=== PATIENT | female | born 1980 | race Caucasian/White ===

== ENCOUNTER → 2016-03-08 | Outpatient (CLI) | payer OTHER ==
[~2016-03-08] MED LIST: CETI10CA PO; CYCL10TA9 PO; DIPH50CA33 PO; GLUC-96 PO; HYDR-623 PO; NAPR-247 PO; SPRINTEC PO
--- OUTSIDE RECORDS SUMMARY | 2016-03-08 08:53 | XMS REPORT | Continuity of Care Document ---
Author Author [facility] Organization [facility] Address Unknown Phone Unavailable Support Name Relationship Address Phone DANNY MCDANIELS MD Caregiver [address] [place] [address] JUSTINE BURGESS APRN Caregiver [address] [place] [address] BHASKAR RAM Next Of Kin [address] [facility] [place] [address] Insurance Providers Payer Name Policy Number Subscriber Name Relationship [employer] [facility] [id number] Cyndi Ram I 20 Self / Same As Patient Advance Directives Directive Response Recorded Date/Time Advance Directives No 12/15/13 3:14pm Health Care Power of Precision Instrument And Tool Maker No 12/15/13 3:14pm Organ Donor Yes 12/15/13 3:14pm Resuscitation Status Full Code 12/15/13 3:14pm Problems Medical Problems Problem Onset Date Status HNP (herniated nucleus pulposus), lumbar Unknown Active Medications Medication Dose Route Sig Days/Qty Instructions Order Date Discontinued Date Status Cyclobenzaprine HCl (Flexeril) 1 Each PO BEDTIME 12/01/13 Active [Sprintec] 1 Tab PO DAILY 12/01/13 Active Naproxen 1 Each PO TWICE A DAY 12/01/13 Active Diphenhydramine HCl 1 Each PO BEDTIME 12/01/13 Active Cetirizine Hcl 10 Mg PO DAILY 12/01/13 Active Glucosa Antunez 2KCL/Chondroitin Antunez 1 Each PO DAILY 12/01/13 Active Acetaminophen/Hydrocodone Bitart 1 Each PO Q4HR PRN PRN PAIN 60 Qty Active Social History Social History Problem Response Recorded Date/Time Alcohol Use Denies Use 12/15/2013 3:26pm Recreational Drug Use No 12/15/2013 3:26pm Recent Foreign Travel No 12/15/2013 3:26pm Recent Infectious Disease Exposure No 12/15/2013 3:26pm Hospitalization with Isolation Denies 12/15/2013 4:15pm Sexually Transmitted Disease No 12/15/2013 3:26pm HIV/AIDS No 12/15/2013 3:26pm Smoking Status Never a Smoker 12/15/2013 3:15pm Do you dip or chew tobacco? No 12/15/2013 3:15pm Query Response Start Date Stop Date Smoking Status Never a Smoker Hospital Discharge Instructions No hospital discharge instructions. Plan of Care No plan of care. Functional Status Query Response Date Recorded Patient Orientation Person Place Time Situation December 17, 2013 12:24pm Comprehension Ability Understands Concepts December 15, 2013 3:00pm Allergies, Adverse Reactions, Alerts Allergen Type Severity Reaction Status Last Updated No Known Drug Allergies Active 12/01/13 Immunizations Name Given Type Date of Influenza Vaccine 12/10/13 Historical Vital Signs Acute Vital Signs Vital Response Date/Time Temperature (Fahrenheit) 98.6 degrees F (97.6 - 99.5) Temperature (Calculated Celsius) 37.55926 degrees C (36.4 - 37.5) Temperature Source Tympanic Pulse Rate (adult) 92 bpm (60 - 90) Respiratory Rate 18 bpm (12 - 24) O2 Sat by Pulse Oximetry 92 % (88 - 100) Blood Pressure 116/82 mm Hg Pain Pain Intensity 8 Height (Feet) 5 feet Height (Inches) 4.00 inches Height (Calculated Centimeters) 162.003755 cm Weight (Pounds) 199 pounds Weight (Calculated Grams) 02397.883 gm Weight (Calculated Kilograms) 90.765220 kilograms Calculated BMI 34.15 Results No known relevant diagnostic tests, laboratory data and/or discharge summary. Procedures Procedure Status Date Provider(s) LOW BACK DISK SURGERY completed 12/15/13 DANNY MCDANIELS MD Encounters Encounter Location Date/Time Registered Clinic Via [facility] 12/01/13 7:57am
--- NOTE | 2016-03-08 09:16 | Diagnostic Imaging Report ---
INDICATION: Left-sided low back pain and left hip pain for approximately one month. No known injury. TECHNIQUE: 2 views of the left hip. CORRELATION STUDY: None FINDINGS: Images of the hip demonstrate no evidence for acute fracture. Alignment is anatomic. The femoral head acetabular relationship is unremarkable. The bony trabecular pattern is intact. IMPRESSION: 1. Negative for acute bony abnormality of the left hip. Dictated by: Dictated on workstation # [id number]
--- NOTE | 2016-03-08 12:01 | Diagnostic Imaging Report ---
INDICATION: Low back pain, left hip pain. History of previous lumbar spine surgery. TECHNIQUE: AP, Lateral and Spot imaging of the lumbar spine CORRELATION STUDY: 10/14/2013. FINDINGS: Lumbar spinal alignment relatively anatomic. Lumbar vertebral body heights maintained. Moderate disc space narrowing at L5-S1 level. Remaining disc spaces overall fairly well preserved. IMPRESSION: Asymmetric disc space narrowing at L5-S1 level. Otherwise, unremarkable examination of lumbar spine. Dictated by: Dictated on workstation # [id number]
== END ==
LOC: RAD 08:49
PROVIDERS: ATTEND Nurse Practitioner Family
DX: M54.5 Low back pain (principal); M25.552 Pain in left hip
CPT/HCPCS: 72100; 73502

== ENCOUNTER 2016-04-21 10:07 | Outpatient (CLI) | payer OTHER ==
[~2016-04-21] VITALS: Ht 160 cm; Wt 90.7 kg
--- OUTSIDE RECORDS SUMMARY | 2016-04-21 10:10 | XMS REPORT | Continuity of Care Document ---
Author Author [facility] Organization [facility] Address Unknown Phone Unavailable Support Name Relationship Address Phone DANNY MCDANIELS MD Caregiver [address] [place] [address] JUSTINE BURGESS APRN Caregiver [address] [place] [address] BHASKAR RMA Next Of Kin [address] [facility] [place] [address] Insurance Providers Payer Name Policy Number Subscriber Name Relationship [employer] [facility] [id number] Cyndi Ram I 18 Self / Same As Patient Advance Directives Directive Response Recorded Date/Time Advance Directives No 12/15/13 3:14pm Health Care Power of Advertising Job Titles No 12/15/13 3:14pm Organ Donor Yes 12/15/13 [...] F (97.6 - 99.5) Temperature (Calculated Celsius) 37.74059 degrees C (36.4 - 37.5) Temperature Source Tympanic Pulse Rate (adult) 92 bpm (60 - 90) Respiratory Rate 18 bpm (12 - 24) O2 Sat by Pulse Oximetry 92 % (88 - 100) Blood Pressure 116/82 mm Hg Pain Pain Intensity 8 Height (Feet) 5 feet Height (Inches) 4.00 inches Height (Calculated Centimeters) 162.744016 cm Weight (Pounds) 199 pounds Weight (Calculated Grams) 89755.883 gm Weight (Calculated Kilograms) 90.527231 kilograms Calculated BMI 34.15 Results No known relevant diagnostic tests, laboratory data and/or discharge summary. Procedures Procedure Status Date Provider(s) LOW BACK DISK SURGERY completed 12/15/13 DANNY MCDANIELS MD Encounters Encounter Location Date/Time Registered Clinic [facility] 12/01/13 7:57am
[2016-04-21] MEDS ORDERED: BUPIVACAINE 0.25% 30 ML (SENSORCAINE) VIAL ONE (10:17)
[2016-04-21] MEDS ORDERED: TRIAMCINOLONE ACET (KENALOG-40) 40 MG/ML 1 ML VIAL ONE (10:17)
[2016-04-21 10:24] VITALS: BP 165/116
[2016-04-21 10:55] VITALS: BP 160/104
--- NOTE | 2016-04-21 14:13 | Pain Medicine-Procedure ---
Procedure Pre-Op/Post-Op Diagnosis Diagnosis: disc disorder with radiculopathy, lumbar Indications for Operation Low back pain Attending Surgeon Sandie Procedure Date of Service: Apr 21, 2016 PROCEDURE: Caudal Epidural Steroid Injection with catheter under Flouroscopic Guidance PROCEDURE NOTE: After obtaining written informed consent patient was taken to the procedure room. Vital signs were monitored through out the procedure. A time out was performed. The patient was placed in the prone position on fluoroscopy table. The lower back above the caudal space was prepped with chloraprep and draped in the usual sterile fashion. The skin over the sacral hiatus was identified under fluoroscopic guidance and infiltrated with 1% lidocaine for local anesthesia via 25 gauge needle. An 17-gauge epimed needle was used to access the epidural space under fluoroscopic guidance and was then advanced into the epidural space under fluoroscopic guidance in the AP view. The epimed catheter was then advanced under flourospopic guidance to the L5-S1 interspace. There was no paresthesia with catheter placement. After negative aspiration 1 cc of the contrast dye was injected through the needle with good spread of the medication in the epidural space at the appropriate levels. Again, after negative aspiration, 80 mg of kenalog with 2 cc of 0.25% marcaine and 2 mL's of preservative free normal saline was injected. There was no evidence of CSF, paresthesia or heme during the procedure. The catheter and needle were withdrawn as a unit and the tip was noted to be intact upon removal. Skin was cleaned and a sterile dressing was applied. Following the procedure the patient's vital signs were stable. The patient was discharged home after a brief period of observation with no new neuologic deficits. Complications None GEOVANI CASTANEDA MD Apr 21, 2016 2:13 pm
== END 2016-04-21 10:56 | disposition home or self-care (01) ==
LOC: CARD 10:07
PROVIDERS: ATTEND Pain Medicine Pain Medicine
DX: M51.16 Intervertebral disc disorders with radiculopathy, lumbar region (principal); Z79.899 Other long term (current) drug therapy
CPT/HCPCS: 62323

== ENCOUNTER → 2016-05-15 | Outpatient (CLI) | payer OTHER ==
--- OUTSIDE RECORDS SUMMARY | 2016-05-15 07:42 | XMS REPORT | Continuity of Care Document ---
Author Author [facility] Organization [facility] Address Unknown Phone Unavailable Support Name Relationship Address Phone DANNY MCDANIELS MD Caregiver [address] [place] [address] JUSTINE BURGESS APRN Caregiver [address] [place] [address] BHASKAR RAM Next Of Kin [address] [facility] [place] [address] Insurance Providers Payer Name Policy Number Subscriber Name Relationship [employer] [facility] [id number] Cyndi Ram I 20 Self / Same As Patient Advance Directives Directive Response Recorded Date/Time Advance Directives No 12/15/13 3:14pm Health Care Power of Nut Feeder No 12/15/13 3:14pm Organ Donor Yes 12/15/13 [...] F (97.6 - 99.5) Temperature (Calculated Celsius) 37.55206 degrees C (36.4 - 37.5) Temperature Source Tympanic Pulse Rate (adult) 92 bpm (60 - 90) Respiratory Rate 18 bpm (12 - 24) O2 Sat by Pulse Oximetry 92 % (88 - 100) Blood Pressure 116/82 mm Hg Pain Pain Intensity 8 Height (Feet) 5 feet Height (Inches) 4.00 inches Height (Calculated Centimeters) 162.631135 cm Weight (Pounds) 199 pounds Weight (Calculated Grams) 18985.883 gm Weight (Calculated Kilograms) 90.809717 kilograms Calculated BMI 34.15 Results No known relevant diagnostic tests, laboratory data and/or discharge summary. Procedures Procedure Status Date Provider(s) LOW BACK DISK SURGERY completed 12/15/13 DANNY MCDANIELS MD Encounters Encounter Location Date/Time Registered Clinic Via [facility] 12/01/13 7:57am
--- NOTE | 2016-05-15 13:23 | Diagnostic Imaging Report ---
PROCEDURE: MRI lumbar spine. TECHNIQUE: Multiplanar, multisequence MRI of the lumbar spine was performed without contrast. INDICATION: Back pain. FINDINGS: There is satisfactory alignment of the posterior spinal line. The vertebral body heights are preserved. The L5-S1 disc demonstrates mild height loss and there is mild disc desiccation at L4-5 and L5-S1. There are minimal reactive degenerative marrow changes around endplate of L5-S1 disc. The cauda equina and conus medullaris appear grossly unremarkable. The conus terminates at the upper L1 level. T12-L1: No disc herniation, no spinal canal or foraminal stenosis. L1-L2: No disc herniation. There is mild facet hypertrophy. No spinal canal or foraminal stenosis. L2-L3: There is no disc herniation. There is minimal facet hypertrophy. No spinal canal or foraminal stenosis. L3-L4: There is no disc herniation. There is mild facet hypertrophy. No central canal or lateral recess stenosis. No foraminal narrowing. L4-L5: There is a mild broad-based left lateral disc protrusion. There is mild to moderate facet arthropathy with minimal facet joint effusion bilaterally. There is no central canal or lateral recess stenosis. There is a mild left foraminal stenosis. The right foramen is patent. L5-S1: There is a broad-based left paracentral disc protrusion with annular tear and there is mild facet hypertrophy bilaterally. There is evidence of prior left hemilaminectomy at the S1 level. There is mild central canal stenosis reducing the AP dimension of the canal to 8 mm. There is bilateral mild lateral recess stenosis more on the left side. The neural foramina demonstrates bilateral moderate to severe stenosis more on the right side. IMPRESSION: Bilateral moderate to severe foraminal stenosis at L5-S1 level more on the right side. There is also mild lateral recess stenosis bilaterally at this level. Dictated by: Dictated on workstation # [id number]
== END ==
LOC: RAD 07:39
PROVIDERS: ATTEND Pain Medicine Pain Medicine
DX: M54.5 Low back pain (principal)
CPT/HCPCS: 72148

== ENCOUNTER 2016-05-23 08:31 | Outpatient (RCR) | payer OTHER ==
--- OUTSIDE RECORDS SUMMARY | 2016-03-30 08:08 | XMS REPORT | Continuity of Care Document ---
Author Author [facility] Organization [facility] Address Unknown Phone Unavailable Support Name Relationship Address Phone DANNY MCDANIELS MD Caregiver [address] [place] [address] JUSTINE BURGESS APRN Caregiver [address] [place] [address] BHASKAR RAM Next Of Kin [address] [facility] [place] [address] Insurance Providers Payer Name Policy Number Subscriber Name Relationship [employer] [facility] [id number] Cyndi Ram I 18 Self / Same As Patient Advance Directives Directive Response Recorded Date/Time Advance Directives No 12/15/13 3:14pm Health Care Power of Apprise Counselor No 12/15/13 3:14pm Organ Donor Yes 12/15/13 [...] F (97.6 - 99.5) Temperature (Calculated Celsius) 37.64857 degrees C (36.4 - 37.5) Temperature Source Tympanic Pulse Rate (adult) 92 bpm (60 - 90) Respiratory Rate 18 bpm (12 - 24) O2 Sat by Pulse Oximetry 92 % (88 - 100) Blood Pressure 116/82 mm Hg Pain Pain Intensity 8 Height (Feet) 5 feet Height (Inches) 4.00 inches Height (Calculated Centimeters) 162.100214 cm Weight (Pounds) 199 pounds Weight (Calculated Grams) 44262.883 gm Weight (Calculated Kilograms) 90.137822 kilograms Calculated BMI 34.15 Results No known relevant diagnostic tests, laboratory data and/or discharge summary. Procedures Procedure Status Date Provider(s) LOW BACK DISK SURGERY completed 12/15/13 DANNY MCDANIELS MD Encounters Encounter Location Date/Time Registered Clinic Via [facility] 12/01/13 7:57am
== END 2016-06-13 11:47 | disposition home or self-care (01) ==
PROVIDERS: ATTEND Nurse Practitioner Family
DX: M54.5 Low back pain (principal)

== ENCOUNTER 2016-06-26 12:36 | Outpatient (CLI) | payer OTHER ==
[~2016-06-26] VITALS: Ht 160 cm; Wt 93.0 kg
[2016-06-26] MEDS ORDERED: BUPIVACAINE 0.25% 30 ML (SENSORCAINE) VIAL ONE (12:41)
[2016-06-26] MEDS ORDERED: TRIAMCINOLONE ACET (KENALOG-40) 40 MG/ML 1 ML VIAL ONE (12:41)
[2016-06-26 12:52] VITALS: BP 146/113
[2016-06-26 13:37] VITALS: BP 153/115
--- NOTE | 2016-06-26 14:42 | Pain Medicine-Procedure ---
Procedure Pre-Op/Post-Op Diagnosis Diagnosis: disc disorder with radiculopathy, lumbar Indications for Operation Low back pain Attending Surgeon Sandie Procedure Date of Service: Jun 26, 2016 PROCEDURE: Caudal Epidural Steroid Injection with catheter under Flouroscopic Guidance PROCEDURE NOTE: After obtaining written informed consent patient was taken to the procedure room. Vital signs were monitored through out the procedure. A time out was performed. The patient was placed in the prone position on fluoroscopy table. The lower back above the caudal space was prepped with chloraprep and draped in the usual sterile fashion. The skin over the sacral hiatus was identified under fluoroscopic guidance and infiltrated with 1% lidocaine for local anesthesia via 25 gauge needle. An 17-gauge epimed needle was used to access the epidural space under fluoroscopic guidance and was then advanced into the epidural space under fluoroscopic guidance in the AP view. The epimed catheter was then advanced under flourospopic guidance to the L5-S1 interspace. There was no paresthesia with catheter placement. After negative aspiration 1 cc of the contrast dye was injected through the needle with good spread of the medication in the epidural space at the appropriate levels. Again, after negative aspiration, 80 mg of kenalog with 2 cc of 0.25% marcaine and 2 mL's of preservative free normal saline was injected. There was no evidence of CSF, paresthesia or heme during the procedure. The catheter and needle were withdrawn as a unit and the tip was noted to be intact upon removal. Skin was cleaned and a sterile dressing was applied. Following the procedure the patient's vital signs were stable. The patient was discharged home after a brief period of observation with no new neuologic deficits. Complications None GEOVANI CASTANEDA MD Jun 26, 2016 2:42 pm
== END 2016-06-26 13:39 | disposition home or self-care (01) ==
LOC: CARD 12:36
PROVIDERS: ATTEND Pain Medicine Pain Medicine
DX: M51.16 Intervertebral disc disorders with radiculopathy, lumbar region (principal); Z79.899 Other long term (current) drug therapy
CPT/HCPCS: 62323

== ENCOUNTER → 2016-08-21 | Outpatient (CLI) | payer OTHER ==
[2016-08-21 08:28] LABS: CHOLESTEROL 195 MG/DL (< 200); DIRECT LDL 123 MG/DL (1-129); LIPEMIA 6 (-100-49); TRIGLYCERIDES 214 MG/DL (<150); VLDL CHOLESTEROL 43 MG/DL (5-40)
== END ==
LOC: LAB 07:46
PROVIDERS: ATTEND Nurse Practitioner Family
DX: E78.2 Mixed hyperlipidemia (principal)
CPT/HCPCS: 36415; 80061

== ENCOUNTER → 2017-03-01 | Outpatient (CLI) | payer OTHER ==
[2017-03-01 10:29] LABS: HEMOGLOBIN 15.2 G/DL (11.5-16.0); MEAN PLATELET VOLUME 9.1 FL (7.4-10.4); RED BLOOD COUNT 5.11 10^6/uL (4.35-5.85); RED CELL DISTRIBUTION WIDTH 12.8 % (10.0-14.5); WHITE BLOOD COUNT 8.4 10^3/uL (4.3-11.0)
[2017-03-01 10:55] LABS: ALANINE AMINOTRANSFERASE 28 U/L (0-55); ALBUMIN 4.2 GM/DL (3.2-4.5); ALKALINE PHOSPHATASE 88 U/L (40-136); BILIRUBIN,TOTAL 0.5 MG/DL (0.1-1.0); BUN/CREATININE RATIO 19; CALCIUM 9.3 MG/DL (8.5-10.1); CARBON DIOXIDE 23 MMOL/L (21-32); CHLORIDE 106 MMOL/L (98-107); CHOLESTEROL 216 MG/DL (< 200); CREATININE SERUM 0.75 MG/DL (0.60-1.30); GFR ESTIMATED > 60; GLUCOSE 118 MG/DL (70-105); HDL CHOLESTEROL 43 MG/DL (40-60); SODIUM 138 MMOL/L (135-145); TOTAL PROTEIN 7.3 GM/DL (6.4-8.2); TRIGLYCERIDES 163 MG/DL (<150); VLDL CHOLESTEROL 33 MG/DL (5-40)
== END ==
LOC: LAB 10:07
PROVIDERS: ATTEND Nurse Practitioner Family
DX: E55.9 Vitamin D deficiency, unspecified (principal); R53.83 Other fatigue
CPT/HCPCS: 36415; 80053; 80061; 82306; 82607; 85027

== ENCOUNTER → 2017-12-21 | Outpatient (CLI) | payer OTHER ==
[2017-12-21 07:35] LABS: BASOPHILS # (AUTO) 0.1 10^3/uL (0.0-0.1); BASOPHILS % (AUTO) 1 % (0-10); EOSINOPHILS # (AUTO) 0.3 10^3/uL (0.0-0.3); EOSINOPHILS % (AUTO) 4 % (0-10); HEMATOCRIT 41 % (35-52); HEMOGLOBIN 14.3 G/DL (11.5-16.0); LYMPHOCYTES # (AUTO) 2.5 X 10^3 (1.0-4.0); LYMPHOCYTES % (AUTO) 34 % (12-44); MEAN CORPUSCULAR HEMOGLOBIN 30 PG (25-34); MEAN CORPUSCULAR HGB CONC 35 G/DL (32-36); MEAN CORPUSCULAR VOLUME 86 FL (80-99); MEAN PLATELET VOLUME 9.1 FL (7.4-10.4); MONOCYTES # (AUTO) 0.6 X 10^3 (0.0-1.0); MONOCYTES % (AUTO) 9 % (0-12); NEUTROPHILS # (AUTO) 3.8 X 10^3 (1.8-7.8); NEUTROPHILS % (AUTO) 52 % (42-75); PLATELET COUNT 324 10^3/uL (130-400); RED BLOOD COUNT 4.75 10^6/uL (4.35-5.85); RED CELL DISTRIBUTION WIDTH 12.3 % (10.0-14.5); WHITE BLOOD COUNT 7.3 10^3/uL (4.3-11.0)
[2017-12-21 07:53] LABS: ALANINE AMINOTRANSFERASE 38 U/L (0-55); ALBUMIN 4.2 GM/DL (3.2-4.5); ALKALINE PHOSPHATASE 86 U/L (40-136); BILIRUBIN,TOTAL 0.4 MG/DL (0.1-1.0); BUN/CREATININE RATIO 17; CALCIUM 9.3 MG/DL (8.5-10.1); CARBON DIOXIDE 21 MMOL/L (21-32); CHLORIDE 107 MMOL/L (98-107); CHOLESTEROL 204 MG/DL (< 200); CREATININE SERUM 0.81 MG/DL (0.60-1.30); GFR ESTIMATED > 60; GLUCOSE 144 MG/DL (70-105); HDL CHOLESTEROL 37 MG/DL (40-60); SODIUM 140 MMOL/L (135-145); TRIGLYCERIDES 161 MG/DL (<150); VLDL CHOLESTEROL 32 MG/DL (5-40)
== END ==
LOC: LAB 07:19
PROVIDERS: ATTEND Nurse Practitioner Family
DX: E55.9 Vitamin D deficiency, unspecified (principal); E78.5 Hyperlipidemia, unspecified
CPT/HCPCS: 36415; 80053; 80061; 82306; 84443; 85025

== ENCOUNTER → 2017-12-27 | Outpatient (CLI) | payer OTHER ==
[2017-12-27 11:01] LABS: URIC ACID 7.4 MG/DL (2.6-7.2)
== END ==
LOC: LAB 10:14
PROVIDERS: ATTEND Podiatrist Foot & Ankle Surgery
DX: R60.9 Edema, unspecified (principal)
CPT/HCPCS: 36415; 84550; 86038; 86141; 86430; 86618; 86666; 86668; 86757

== ENCOUNTER → 2017-12-27 | Outpatient (CLI) | payer OTHER | LOC: LAB 10:17 | PROVIDERS: ATTEND Nurse Practitioner Family | DX: R73.01 Impaired fasting glucose (principal) | CPT/HCPCS: 36415; 83036 ==

== ENCOUNTER → 2018-01-14 | Outpatient (CLI) | payer OTHER ==
--- NOTE | 2018-01-14 17:53 | Diagnostic Imaging Report ---
Indication: Routine screening. Comparison: No prior studies are available for comparison. This is a baseline study. Findings: Scattered fibroglandular densities are identified bilaterally. There is an area of nodularity in the medial aspect of the left breast posterior depth best seen on the tomographic images. Seen on CC tomographic image 44 and MLO tomographic image 76. Additional views are recommended. No other masses are identified. No suspicious calcifications are seen. Axillae are unremarkable. Impression: BI-RADS 0. Left breast density. Additional views are recommended for further evaluation. ACR BI-RADS Category 0: Incomplete. (Needs additional imaging evaluation). Result letter will be mailed to the patient. Note: At least 10% of breast cancer is not imaged by mammography. Dictated by: Dictated on workstation # [id number]
== END ==
LOC: RAD 14:48
PROVIDERS: ATTEND Nurse Practitioner Family
DX: Z12.31 Encounter for screening mammogram for malignant neoplasm of breast (principal)
CPT/HCPCS: 77067

== ENCOUNTER → 2018-01-30 | Outpatient (CLI) | payer OTHER ==
--- NOTE | 2018-01-30 10:22 | Diagnostic Imaging Report ---
Indication: Left breast density. Patient presents for additional views. Correlation is made with recent baseline screening mammogram from 01/14/2018. Unilateral left 2-D and 3-D diagnostic mammography was performed including spot compression CC and MLO views as well as conventional mediolateral view. There is a circumscribed density in the medial left breast on the cc view approximately 12-13 cm from the nipple. No density is identified on today's spot compression views in the MLO plane. No suspicious calcifications are seen. Impression: BI-RADS zero Persistent circumscribed nodular density in the medial left breast 12-13 cm from the nipple. Sonographic interrogation recommended for further evaluation will be performed today. ACR BI-RADS Category 0: Incomplete. (Needs additional imaging evaluation). Result letter will be mailed to the patient. Note: At least 10% of breast cancer is not imaged by mammography. Dictated by: Dictated on workstation # [id number]
--- NOTE | 2018-01-30 12:07 | Diagnostic Imaging Report ---
Indication: Left breast density. Correlation is made with diagnostic mammogram earlier the same day and screening mammogram from 01/14/2018. Sonographic interrogation of the inner left breast was performed. There is a circumscribed hypoechoic nodule at the 9:30 location of the left breast, 12 cm from the nipple measuring 7 mm x 5 mm x 7 mm. No internal vascularity is seen. No posterior acoustic shadowing is identified. This may account for the mammographic density. No other abnormalities are identified. Impression: BI-RADS category 3 Circumscribed solid nodule 9:30 location of the left breast 12 cm from the nipple, likely accounting for the mammographic density. This has benign features and may represent a small fibroadenoma. Even so, followup left mammogram and left breast ultrasound in 6 months is recommended to show continued stability. Dictated by: Dictated on workstation # [id number]
== END ==
LOC: RAD 09:00
PROVIDERS: ATTEND Nurse Practitioner Family
DX: N63.22 Unspecified lump in the left breast, upper inner quadrant (principal); R92.2 Inconclusive mammogram
CPT/HCPCS: 76642

== ENCOUNTER → 2018-06-05 | Outpatient (CLI) | payer OTHER ==
--- NOTE | 2018-06-05 14:35 | Diagnostic Imaging Report ---
INDICATION: Back pain. COMPARISON: 03/08/2016. FINDINGS: The lumbar body heights are maintained and the alignment is stable. The statures are normal. No endplate irregularity. Degenerative narrowing of the L5-S1 disc space as a mildly progressed chronic finding is noted. There is some L5-S1 facet arthrosis, also increased. IMPRESSION: Mild progressive degenerative changes across the lumbosacral junction. Normal alignment. No fracture or stature loss. No other abnormality. Dictated by: Dictated on workstation # [id number]
== END ==
LOC: RAD 12:59
PROVIDERS: ATTEND Nurse Practitioner Family
DX: M47.817 Spondylosis without myelopathy or radiculopathy, lumbosacral region (principal); Z87.39 Personal history of other diseases of the musculoskeletal system and connective tissue
CPT/HCPCS: 72100

== ENCOUNTER → 2018-06-06 | Outpatient (CLI) | payer OTHER ==
[2018-06-06 07:49] LABS: CHOLESTEROL 190 MG/DL (< 200); HDL CHOLESTEROL 33 MG/DL (40-60); TRIGLYCERIDES 107 MG/DL (<150); VLDL CHOLESTEROL 21 MG/DL (5-40)
== END ==
LOC: LAB 07:18
PROVIDERS: ATTEND Nurse Practitioner Family
DX: R73.9 Hyperglycemia, unspecified (principal); E78.5 Hyperlipidemia, unspecified
CPT/HCPCS: 36415; 80061; 83036

== ENCOUNTER → 2018-06-19 | Outpatient (CLI) | payer OTHER ==
--- NOTE | 2018-06-19 13:41 | Diagnostic Imaging Report ---
CLINICAL INDICATION: Patient with low back pain and bilateral leg pain/numbness. Patient had previous lumbar spine surgery December 2013. EXAM: MRI of the lumbar spine performed without IV contrast. Sagittal T2, sagittal T1, sagittal stir, and axial T2. COMPARISON: MRI of the lumbar spine without contrast dated 05/15/2016. FINDINGS: Again seen postop changes to the lower lumbar region related to left L5-S1 laminotomy and likely discectomy changes. There is no significant paraspinal fluid collection. Lumbar spine has normal alignment with no acute fracture or dislocation. The lumbar vertebrae had normal T1-T2 signal. The visualized portions of the distal thoracic spinal cord, conus medullaris, and cauda equina nerve roots are unremarkable. The conus medullaris tip is seen at the upper L1 vertebral body level. Besides postop changes, there is no significant paraspinal soft tissue abnormality. Again seen roughly 10 mm left renal cyst. L1-L2: Unremarkable. L2-L3: Unremarkable. L3-L4: Unremarkable. L4-L5: Stable small disc bulge in the left subarticular region causing moderate left neural foramen narrowing, stable. Otherwise remainder of this level is stable. L5-S1: There is progression of diffuse disc bulge with now moderate to severe loss of intervertebral disc height which has progressed. There is increased size of the anterior disc osteophyte complex component. There is no significant interval change in size of the posterior disc herniation component which minimally encroaches upon the thecal sac anteriorly. There is stable moderate to severe bilateral neural foramen narrowing. There is concern for encroachment upon the non-exited left S1 nerve root which is noted on the prior study. IMPRESSION: 1: There is interval progression of L5-S1 diffuse disc bulge with now moderate to severe loss of intervertebral disc height. There is relatively stable size of the posterior disc herniation component with stable moderate to severe bilateral L5-S1 neural foramen narrowing. There is also stable concern for encroachment upon the non-exited left S1 nerve root. 2: Stable small L4-5 left subarticular disc bulge which causes moderate left neural foramen narrowing. 3: Again seen postop changes with suspected left L5-S1 laminotomy and discectomy. 4: The remainder of this exam shows no significant interval change compared to the prior study of comparison. Dictated by: Dictated on workstation # [id number]
== END ==
LOC: RAD 12:18
PROVIDERS: ATTEND Nurse Practitioner Family
DX: M51.27 Other intervertebral disc displacement, lumbosacral region (principal); M51.36 Other intervertebral disc degeneration, lumbar region; M48.07 Spinal stenosis, lumbosacral region; Z98.890 Other specified postprocedural states
CPT/HCPCS: 72148

== ENCOUNTER → 2018-07-24 | Outpatient (CLI) | payer OTHER ==
--- NOTE | 2018-07-24 15:03 | Diagnostic Imaging Report ---
INDICATION: Six-month followup left breast nodule. COMPARISON: 01/14/2018 and 01/30/2018. TECHNIQUE: Unilateral left 2D and 3D diagnostic mammography was performed with CAD. FINDINGS: Scattered fibroglandular densities in the left breast are noted. The slightly lobulated circumscribed nodule in the medial left breast at mid-to posterior depth appears stable. No new mass is detected. No suspicious microcalcifications are seen. The left axilla is unremarkable. IMPRESSION: Stable left breast nodule. Further evaluation of the nodule with ultrasound is pending. ACR BI-RADS Category 0: Incomplete. (Needs additional imaging evaluation). Result letter will be mailed to the patient. Note: At least 10% of breast cancer is not imaged by mammography. Dictated by: Dictated on workstation # [id number]
--- NOTE | 2018-07-24 15:09 | Diagnostic Imaging Report ---
INDICATION: Left breast nodule. Patient presents for a 6 month followup. COMPARISON: Correlation is made with the screening study of earlier this same day as well as prior left breast ultrasound from 01/30/2018. FINDINGS: The circumscribed hypoechoic nodule at the 9:30 location in the left breast 12 cm from the nipple is again noted and appears stable. This measures 6 mm x 5 mm x 7 mm. No new mass is seen. IMPRESSION: Stable benign-appearing nodule at the 9:30 location of the left breast 12 cm from the nipple is likely a fibroadenoma. An additional 6 month sonographic followup is recommended to confirm stability. ACR BI-RADS Category 3: Probably benign findings. Result letter will be mailed to the patient. Note: At least 10% of breast cancer is not imaged by mammography. Dictated by: Dictated on workstation # [id number]
== END ==
LOC: RAD 12:27
PROVIDERS: ATTEND Nurse Practitioner Family
DX: N63.22 Unspecified lump in the left breast, upper inner quadrant (principal)
CPT/HCPCS: 76642

== ENCOUNTER → 2018-09-13 | Outpatient (CLI) | payer OTHER ==
--- NOTE | 2018-09-13 13:03 | Diagnostic Imaging Report ---
INDICATION: Smashing injury to right second digit two days ago. Pain. TECHNIQUE: PA and two additional views of the right index finger, 12:47 p.m. CORRELATION STUDY: None. FINDINGS: The osseous structures of the hand appear to be intact. Imaging of the second digit demonstrates alignment of the phalanges. No acute bony abnormality. Joint spaces are maintained. No soft tissue foreign body. IMPRESSION: Negative for acute bony abnormality of the right index finger. Dictated by: Dictated on workstation # [id number]
== END ==
LOC: RAD 12:38
PROVIDERS: ATTEND Nurse Practitioner Family
DX: S69.81XA Other specified injuries of right wrist, hand and finger(s), initial encounter (principal)
CPT/HCPCS: 73140

== ENCOUNTER → 2018-11-07 | Outpatient (CLI) | payer OTHER ==
--- NOTE | 2018-11-07 14:40 | Diagnostic Imaging Report ---
CLINICAL INDICATION: Patient has low back pain increasing recently with a history of two previous lumbar spine surgeries. Last surgery was in August of 2018. EXAM: MRI of the lumbar spine performed without IV contrast. Sagittal T2, sagittal T1, sagittal stir, axial T1, and axial T2. COMPARISON: MRI of the lumbar spine without contrast dated 06/19/2018. FINDINGS: There are postop changes seen with L5-S1 left laminectomy. There is interval development of a small fluid collection in the posterior lower lumbar region which measures 2.2 cm x 0.8 cm x 2.3 cm (AP x Trans x CC) . Lumbar spine has normal alignment with no acute fracture or dislocation. There are mild Modic type I degenerative signal changes involving the L5-S1 endplates. The remainder of the lumbar vertebral body signal is unremarkable. The visualized portions of the distal thoracic spinal cord, conus medullaris, and cauda equina nerve roots are unremarkable. The conus medullaris tip is seen at the upper L1 vertebral body level. Besides postop changes, there is no other significant paraspinal soft tissue abnormality. There is a 10 mm cyst involving the left kidney which was also noted on the prior study. T12-L1, L1-L2, and L2-L3: Unremarkable. L3-L4: There is interval development of a small annular tear involving the anterior aspect of L3-L4 disc region with no significant disc bulge. There is no significant posterior disc bulge. There is no significant central spinal canal or neural foramen narrowing. L4-L5: Stable small right subarticular disc bulge which causes stable moderate left neural foramen narrowing. There is no significant central canal or right neural foramen narrowing. L5-S1: Interval postop changes with left L5-S1 laminotomy. There are interval suspected discectomy changes with near resolution of previously seen posterior disc herniation. There is residual small right disc herniation present. There is stable moderate to severe bilateral neural foramen narrowing. There is no significant central canal narrowing. IMPRESSION: 1: Interval postop changes at the L5-S1 level with laminotomy and discectomy changes. There is interval near resolution of the previously seen L5-S1 posterior disc herniation. There is small disc herniation remaining in the right subarticular region. There is stable moderate to severe L5-S1 bilateral neural foramen narrowing. 2: Stable L4-L5 disc herniation of the left subarticular region which causes moderate left neural foramen narrowing. 3: There is interval development of a small annular tear involving the anterior aspect of the L3-L4 disc with no significant disc bulge seen. Dictated by: Dictated on workstation # [id number]
== END ==
LOC: RAD 13:45
PROVIDERS: ATTEND Orthopaedic Surgery Orthopaedic Surgery of the Spine
DX: M51.26 Other intervertebral disc displacement, lumbar region (principal); M48.07 Spinal stenosis, lumbosacral region; M51.36 Other intervertebral disc degeneration, lumbar region
CPT/HCPCS: 72148

== ENCOUNTER 2018-12-12 13:55 | Outpatient (RCR) | payer OTHER | END 2018-12-30 13:38 | disposition home or self-care (01) | PROVIDERS: ATTEND Orthopaedic Surgery Orthopaedic Surgery of the Spine | DX: M54.5 Low back pain (principal); Z98.890 Other specified postprocedural states ==

== ENCOUNTER → 2019-01-13 | Outpatient (CLI) | payer OTHER ==
[2019-01-13 07:48] LABS: BASOPHILS % (AUTO) 1 % (0-10); EOSINOPHILS # (AUTO) 0.3 10^3/uL (0.0-0.3); EOSINOPHILS % (AUTO) 4 % (0-10); HEMATOCRIT 41 % (35-52); HEMOGLOBIN 13.8 G/DL (11.5-16.0); LYMPHOCYTES # (AUTO) 2.2 X 10^3 (1.0-4.0); LYMPHOCYTES % (AUTO) 35 % (12-44); MEAN CORPUSCULAR HEMOGLOBIN 29 PG (25-34); MEAN CORPUSCULAR HGB CONC 34 G/DL (32-36); MEAN CORPUSCULAR VOLUME 86 FL (80-99); MEAN PLATELET VOLUME 8.5 FL (7.4-10.4); MONOCYTES # (AUTO) 0.5 X 10^3 (0.0-1.0); MONOCYTES % (AUTO) 9 % (0-12); NEUTROPHILS # (AUTO) 3.3 X 10^3 (1.8-7.8); NEUTROPHILS % (AUTO) 52 % (42-75); PLATELET COUNT 367 10^3/uL (130-400); RED CELL DISTRIBUTION WIDTH 13.3 % (10.0-14.5); WHITE BLOOD COUNT 6.3 10^3/uL (4.3-11.0)
[2019-01-13 08:08] LABS: ALANINE AMINOTRANSFERASE 20 U/L (0-55); ALBUMIN 4.1 GM/DL (3.2-4.5); ALKALINE PHOSPHATASE 68 U/L (40-136); BILIRUBIN,TOTAL 0.4 MG/DL (0.1-1.0); BUN/CREATININE RATIO 19; CALCIUM 9.3 MG/DL (8.5-10.1); CARBON DIOXIDE 23 MMOL/L (21-32); CHLORIDE 107 MMOL/L (98-107); CREATININE SERUM 0.79 MG/DL (0.60-1.30); GFR ESTIMATED > 60; GLUCOSE 90 MG/DL (70-105); SODIUM 141 MMOL/L (135-145)
== END ==
LOC: LAB 07:35
PROVIDERS: ATTEND Nurse Practitioner Family
DX: E11.9 Type 2 diabetes mellitus without complications (principal); E78.5 Hyperlipidemia, unspecified
CPT/HCPCS: 36415; 80053; 83036; 84443; 85025

== ENCOUNTER → 2019-01-20 | Outpatient (CLI) | payer OTHER ==
--- NOTE | 2019-01-20 19:12 | Diagnostic Imaging Report ---
INDICATION: Left breast nodule. Patient presents for six-month follow-up. Correlation is made with diagnostic mammogram performed earlier the same day as well as prior left breast ultrasound from 07/24/2018. FINDINGS: Hypoechoic slightly lobulated nodule at the 9:30 location of the left breast, 12 cm from the nipple is again noted. This appears to be fairly stable in size measuring 7 mm x 4 mm x 7 mm. This compares with approximately 6 mm x 5 mm x 7 mm on prior. No new abnormality is seen. IMPRESSION: Stable left breast circumscribed nodule. This shows six months of stability. Additional follow-up ultrasound in six months is recommended to show continued stability. ACR BI-RADS Category 3: Probably benign findings. Dictated by: Dictated on workstation # [id number]
--- NOTE | 2019-01-20 19:15 | Diagnostic Imaging Report ---
INDICATION: Six-month follow-up left breast nodule. Correlation is made with prior mammograms from 01/14/2018 and 07/24/2018. 2-D and 3-D bilateral diagnostic mammography was performed. The current study was also evaluated with a Computer Aided Detection (CAD) system. 3-D tomosynthesis was also performed and reviewed. FINDINGS: Scattered fibroglandular densities are identified bilaterally. The slightly lobulated nodule in the medial aspect of the left breast posterior depth appears stable. No new mass is detected. No malignant-appearing microcalcifications are seen. Axillae are unremarkable. IMPRESSION: Stable nodule in medial left breast. Even so, left breast ultrasound is recommended for follow-up and will be performed today. ACR BI-RADS Category 0: Incomplete. (Needs additional imaging evaluation). Result letter will be mailed to the patient. Note: At least 10% of breast cancer is not imaged by mammography. Dictated by: Dictated on workstation # [id number]
== END ==
LOC: RAD 13:53
PROVIDERS: ATTEND Nurse Practitioner Family
DX: N63.20 Unspecified lump in the left breast, unspecified quadrant (principal)
CPT/HCPCS: 76642; 77066

== ENCOUNTER 2019-04-09 11:30 | Outpatient (CLI) | payer OTHER ==
[~2019-04-09] VITALS: Ht 160 cm; Wt 86.3 kg
[2019-04-09] MEDS ORDERED: CETI10CA PO (11:39)
[2019-04-09] MEDS ORDERED: MULT1CAP27 PO (11:39)
[2019-04-09] MEDS ORDERED: RANI-609 PO (11:39)
[2019-04-09] MEDS ORDERED: OMG1KC PO (11:39)
[2019-04-09] MEDS ORDERED: LIRA0.6P SQ (11:39)
[2019-04-11] MEDS ORDERED: IBUP-1780 PO (12:28)
== END 2019-04-09 11:53 | disposition home or self-care (01) ==
LOC: PREOP 11:30
PROVIDERS: ATTEND Obstetrics & Gynecology
DX: Z01.818 Encounter for other preprocedural examination (principal)

== ENCOUNTER → 2019-07-18 | Outpatient (CLI) | payer OTHER ==
[~2019-07-18] MED LIST changes: +IBUP-1780 PO; +LIRA0.6P SQ; +MULT1CAP27 PO; +OMG1KC PO; +RANI-609 PO
--- NOTE | 2019-07-18 12:16 | Diagnostic Imaging Report ---
INDICATION: Left breast nodule. Patient presents for 6 month follow-up. Correlation is made with prior ultrasound from 01/20/2019. The previously noted circumscribed hypoechoic nodule 9:30 location of the left breast, 11 cm from the nipple is again noted. This measures 7 mm x 4 mm x 6 mm, unchanged. No new masses detected. IMPRESSION: BI-RADS Category 3 Stable circumscribed hypoechoic solid nodule 9:30 location left breast. This now shows 18 months of stability. One final six-month ultrasound follow-up is recommended to show continued stability. ACR BI-RADS Category 3: Probably benign findings. Dictated by: Dictated on workstation # [id number]
== END ==
LOC: RAD 10:50
PROVIDERS: ATTEND Nurse Practitioner Family
DX: N63.20 Unspecified lump in the left breast, unspecified quadrant (principal)
CPT/HCPCS: 76642

== ENCOUNTER → 2020-01-16 | Outpatient (CLI) | payer OTHER ==
--- NOTE | 2020-01-16 13:41 | Diagnostic Imaging Report ---
Indication: Left breast nodule. Patient presents for six-month follow-up. Correlation is made prior mammogram 01/20/2019 and 01/14/2018. 2-D and 3-D bilateral diagnostic mammography was performed with CAD. Scattered fibroglandular densities are noted bilaterally. Lobulated nodule in the medial left breast appears stable. No new mass is detected. No malignant appearing microcalcifications are seen. IMPRESSION: BI-RADS 0 Stable left breast nodule. Patient is scheduled for left breast ultrasound today. Dictated by: Dictated on workstation # [id number]
--- NOTE | 2020-01-16 13:56 | Diagnostic Imaging Report ---
INDICATION: Left breast nodule. Patient presents for follow-up. Correlation is made with diagnostic mammogram earlier today as well as left breast ultrasound from 07/18/2019. Sonographic interrogation of the medial left breast was performed. The previously noted circumscribed hypoechoic nodule 9:30 location, 11 cm from the nipple appears stable at 7 mm x 4 mm x 6 mm. No new masses detected. IMPRESSION: BI-RADS 2 Stable nodule at 9:30 location left breast, 11 cm from the nipple. This now shows 2 years of stability. Patient may return to routine annual screening mammography. ACR BI-RADS Category 2: Benign findings. Dictated by: Dictated on workstation # [id number]
== END ==
LOC: RAD 12:45
PROVIDERS: ATTEND Nurse Practitioner Family
DX: N63.22 Unspecified lump in the left breast, upper inner quadrant (principal)
CPT/HCPCS: 76642; 77066; G0279; 77062

== ENCOUNTER 2020-12-14 10:18 | Day surgery (SDC) | payer OTHER ==
[~2020-12-14] VITALS: Ht 160 cm; Wt 86.0 kg
[2020-12-14 11:37] LABS: BASOPHILS # (AUTO) 0.1 10^3/uL (0.0-0.1); BASOPHILS % (AUTO) 1 % (0-10); EOSINOPHILS # (AUTO) 0.1 10^3/uL (0.0-0.3); EOSINOPHILS % (AUTO) 1 % (0-10); HEMATOCRIT 44 % (35-52); HEMOGLOBIN 15.1 g/dL (11.5-16.0); LYMPHOCYTES # (AUTO) 1.8 10^3/uL (1.0-4.0); LYMPHOCYTES % (AUTO) 17 % (12-44); MEAN CORPUSCULAR HEMOGLOBIN 30 pg (25-34); MEAN CORPUSCULAR HGB CONC 34 g/dL (32-36); MEAN CORPUSCULAR VOLUME 88 fL (80-99); MEAN PLATELET VOLUME 9.4 fL (9.0-12.2); MONOCYTES # (AUTO) 0.4 10^3/uL (0.0-1.0); MONOCYTES % (AUTO) 4 % (0-12); NEUTROPHILS # (AUTO) 8.3 10^3/uL (1.8-7.8); NEUTROPHILS % (AUTO) 78 % (42-75); PLATELET COUNT 341 10^3/uL (130-400); WHITE BLOOD COUNT 10.7 10^3/uL (4.3-11.0)
[2020-12-14 11:39] LABS: ALBUMIN 4.5 GM/DL (3.2-4.5); POTASSIUM 4.1 MMOL/L (3.6-5.0)
[2020-12-14 11:39] LABS: BILIRUBIN,URINE NEGATIVE (NEGATIVE); CLARITY,URINE CLEAR; COLOR,URINE YELLOW; GLUCOSE, URINE (UA) TRACE (NEGATIVE); KETONES,URINE NEGATIVE (NEGATIVE); LEUKOCYTE ESTERASE ,URINE NEGATIVE (NEGATIVE); NITRITE,URINE NEGATIVE (NEGATIVE); PROTEIN,URINE NEGATIVE (NEGATIVE)
[2020-12-14 11:41] LABS: CALCIUM 9.8 MG/DL (8.5-10.1)
[2020-12-14 11:42] LABS: TOTAL PROTEIN 7.5 GM/DL (6.4-8.2)
[2020-12-14 11:44] LABS: BILIRUBIN,TOTAL 0.2 MG/DL (0.1-1.0)
[2020-12-14 11:45] LABS: CREATININE SERUM 0.77 MG/DL (0.60-1.30)
[2020-12-14 11:53] LABS: BACTERIA,URINE NEGATIVE /HPF; SQUAMOUS EPITHELIAL CELL,UR 0-2 /HPF
[2020-12-14] MEDS ORDERED: fentaNYL INJ 100 MCG/2 ML AMP IVP STA (12:03)
--- NOTE | 2020-12-14 12:11 | ED Abdominal Pain ---
General Chief Complaint: Abdominal/GI Problems Stated Complaint: ABD PAIN Nursing Triage Note: PT ambulatory to ED by POV with c/o abd pain and nausea that began at 0300 this morning. Pt reports central abd pain that radiates throughout the abd and to the L flank. Pt has hx of acid reflux and reports taking tums and pepto bismol with no relief. Last BM was this am and was normal for pt, denies any vomiting or diarrhea. History of Present Illness Date Seen by Provider: Dec 14, 2020 Time Seen by Provider: 11:05 Initial Comments 40-year-old female presents for epigastric abdominal pain that r adiates to the left flank. She had similar symptoms approximately 2 weeks ago that resolved with conservative measures. She reports that it began at 0300 today, she has not vomited but she does have nausea. She denies any diarrhea. She has no previous abdominal surgeries. She began a low-carb high-fiber diet approximately 5 weeks ago, she has not been eating anything fried or greasy. Her glucose has been elevated at a few visits, she is trying lifestyle modifications. Only medication is a multi-vitamin. No history of kidney stones. Timing/Duration: 4-6 Hours Severity/Quality: Moderate (7/10) Location: Epigastric Radiation: Flank (left) Associated Symptoms: No Back Pain, No Chest Pain, No Fever/Chills, No Fatigue, No Headache, No Heartburn; Nausea/Vomiting; No Rash, No Shortness of Air, No Swelling/Mass in Abdomen, No Syncope, No Weakness Allergies and Home Medications Allergies Coded Allergies: No Known Drug Allergies (Unverified , 04/09/19) Patient Home Medication List Home Medication List Reviewed: Yes Cetirizine HCl (Cetirizine HCl) 10 Mg Tablet, 10 MG PO HS, (Reported) Entered as Reported by: SERGEI BEAR on 12/14/201551 Last Action: Reviewed Diphenhydramine HCl (Benadryl Allergy) 25 Mg Tablet, 25 MG PO HS, (Reported) Entered as Reported by: SERGEI BEAR on 12/14/201551 Last Action: Reviewed Multivitamin (Multivitamin) 1 Each Tablet, 1 EACH PO HS, (Reported) Entered as Reported by: SERGEI BEAR on 12/14/201551 Last Action: Reviewed Omeprazole (Omeprazole) 20 Mg Tab.rap.dr, 20 MG PO HS, (Reported) Entered as Reported by: SERGEI BEAR on 12/14/20 4282 Last Action: Reviewed Discontinued Medications Cetirizine HCl (Zyrtec) 10 Mg Capsule, 10 MG PO DAILY, (Reported) Discontinued Reason: Duplicate Order Entered as Reported by: LILI KEBEDE on 04/09/191138 Last Action: Discontinued Ibuprofen (Ibuprofen) 800 Mg Tablet, 800 MG PO Q6H PRN for PAIN Discontinued Reason: Duplicate Order Prescribed by: EMMANUELLE YBARRA on 04/11/19 1228 Last Action: Discontinued Liraglutide (Victoza 2-Everardo) 0.6 Mg/0.1 Ml Pen.injctr, 1.8 MG SQ DAILY, (Reported) Discontinued Reason: Duplicate Order Entered as Reported by: LILI KEBEDE on 04/09/191138 Last Action: Discontinued Multivitamin (Multivitamins) 1 Each Capsule, 1 EACH PO DAILY, (Reported) Discontinued Reason: Duplicate Order Entered as Reported by: LILI KEBEDE on 04/09/191138 Last Action: Discontinued [place] 3 Polyunsat Fatty Acids (Fish Oil 1,000 mg Capsule) 1,000 Mg Cap, 1,000 MG PO DAILY, (Reported) Discontinued Reason: Duplicate Order Entered as Reported by: LILI KEBEDE on 04/09/191138 Last Action: Discontinued Ranitidine HCl (Acid Employment Programs Analyst (RANITIDINE)) 150 Mg Tablet, 150 MG PO DAILY, (Reported) Discontinued Reason: Duplicate Order Entered as Reported by: LILI KEBEDE on 04/09/191138 Last Action: Discontinued Review of Systems Review of Systems Constitutional: no symptoms reported, see HPI Gastrointestinal: See HPI, Abdominal Pain; Denies Diarrhea; Nausea; Denies Vomiting All Other Systems Reviewed Negative Unless Noted: Yes Past Viochfu-Luqwbi-Gkoeop Hx Patient Social History Tobacco Use?: No Use of E-Cig and/or Vaping dev: No Substance use?: No Alcohol Use?: No Pt feels they are or have been: No Immunizations Up To Date Influenza Vaccine Up-to-Date: Yes; Up-to-Date First/Initial COVID19 Vaccinat: Nov 2020 Second COVID19 Vaccination Ricky: Nov 2020 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[employer] [place] Seasonal Allergies Seasonal Allergies: Yes Past Medical History Surgery/Hospitalization HX: tonsilectomy, , tubal ablation Surgeries: Yes (MICRODISCECTOMY AND REVISION, ARTIFICIAL DISC REPLACEMENT) Section, Orthopedic, Tonsillectomy Respiratory: No Cardiac: No Neurological: Yes (SEIZURE DURING ) Reproductive Disorders: No Female Reproductive Disorders: Menstrual Problems Sexually Transmitted Disease: No HIV/AIDS: No Genitourinary: No Gastrointestinal: Yes Gastroesophageal Reflux Musculoskeletal: Yes Arthritis Endocrine: No HEENT: Yes (GLASSES/CONTACTS) Loss of Vision: Denies Hearing Impairment: Denies Cancer: No Psychosocial: No Integumentary: No Blood Disorders: No Adverse Reaction/Blood Tranf: No (N/A) Family Medical History Reviewed Nursing Family Hx Arthritis G8 BROTHER (GOUT) Chronic lymphoid leukemia Physical Exam Vital Signs Vital Signs - First Documented 12/14/20 10:28 Temp 36.2 Pulse 86 Resp 16 B/P (MAP) 159/98 (118) Pulse Ox 96 O2 Delivery Room Air Capillary Refill : Less Than 3 Seconds Height/Weight/BMI Height: 5'3.00" Weight: 205lbs. 0.0oz. [id number]; 33.00 BMI Method: General Appearance: WD/WN, mild distress (Secondary to pain) HEENT: PERRL/EOMI, normal ENT inspection, TMs normal, pharynx normal Neck: non-tender, full range of motion, supple, normal inspection Respiratory: chest non-tender, lungs clear, normal breath sounds Cardiovascular: normal peripheral pulses, regular rate, rhythm Gastrointestinal: normal bowel sounds, soft; No distended; rebound, tenderness (Epigastric, right upper and lower quadrants); No mass; other (Positive Hunt sign) Extremities: normal range of motion, non-tender, normal inspection, normal capillary refill Back: normal inspection, no vertebral tenderness, CVA tenderness (L) Neurologic/Psychiatric: no motor/sensory deficits, alert, normal mood/affect, oriented x 3 Skin: normal color, warm/dry; No jaundice Progress/Results/Core Measures Results/Orders Lab Results Laboratory Tests Test 12/14/20 10:35 12/14/20 10:44 Range/Units Urine Color YELLOW Urine Clarity CLEAR Urine pH 7.0 5-9 Urine Specific [place] 1.010 L 1.016-1.022 Urine Protein NEGATIVE NEGATIVE Urine Glucose (UA) TRACE H NEGATIVE Urine Ketones NEGATIVE NEGATIVE Urine Nitrite NEGATIVE NEGATIVE Urine Bilirubin NEGATIVE NEGATIVE Urine Urobilinogen 0.2 < = 1.0 MG/DL Urine Leukocyte Esterase NEGATIVE NEGATIVE Urine RBC (Auto) NEGATIVE NEGATIVE Urine RBC NONE /HPF Urine WBC NONE /HPF Urine Squamous Epithelial Cells 0-2 /HPF Urine Crystals NONE /LPF Urine Bacteria NEGATIVE /HPF Urine Casts NONE /LPF Urine Mucus NEGATIVE /LPF Urine Culture Indicated NO White Blood Count 10.7 4.3-11.0 10^3/uL Red Blood Count 5.00 3.80-5.11 10^6/uL Hemoglobin 15.1 11.5-16.0 g/dL Hematocrit 44 35-52 % Mean Corpuscular Volume 88 80-99 fL Mean Corpuscular Hemoglobin 30 25-34 pg Mean Corpuscular Hemoglobin Concent 34 32-36 g/dL Red Cell Distribution Width 11.6 10.0-14.5 % Platelet Count 341 130-400 10^3/uL Mean Platelet Volume 9.4 9.0-12.2 fL Immature Granulocyte % (Auto) 1 % Neutrophils (%) (Auto) 78 H 42-75 % Lymphocytes (%) (Auto) 17 12-44 % Monocytes (%) (Auto) 4 0-12 % Eosinophils (%) (Auto) 1 0-10 % Basophils (%) (Auto) 1 0-10 % Neutrophils # (Auto) 8.3 H 1.8-7.8 10^3/uL Lymphocytes # (Auto) 1.8 1.0-4.0 10^3/uL Monocytes # (Auto) 0.4 0.0-1.0 10^3/uL Eosinophils # (Auto) 0.1 0.0-0.3 10^3/uL Basophils # (Auto) 0.1 0.0-0.1 10^3/uL Immature Granulocyte # (Auto) 0.1 0.0-0.1 10^3/uL Sodium Level 139 135-145 MMOL/L Potassium Level 4.1 3.6-5.0 MMOL/L Chloride Level 105 98-107 MMOL/L Carbon Dioxide Level 22 21-32 MMOL/L Anion Gap 12 5-14 MMOL/L Blood Urea Nitrogen 13 7-18 MG/DL Creatinine 0.77 0.60-1.30 MG/DL Estimat Glomerular Filtration Rate 84 BUN/Creatinine Ratio 17 Glucose Level 145 H 70-105 MG/DL Calcium Level 9.8 8.5-10.1 MG/DL Corrected Calcium 9.4 8.5-10.1 MG/DL Total Bilirubin 0.2 0.1-1.0 MG/DL Aspartate Amino Transf (AST/SGOT) 25 5-34 U/L Alanine Aminotransferase (ALT/SGPT) 37 0-55 U/L Alkaline Phosphatase 76 40-136 U/L Total Protein 7.5 6.4-8.2 GM/DL Albumin 4.5 3.2-4.5 GM/DL My Orders Orders - MARIJA COOL Cbc With Automated Diff (12/14/20 11:32) Comprehensive Metabolic Panel (12/14/20 11:32) Ua Culture If Indicated (12/14/20 11:32) Ct Abd/Pelv W (Appendicitis) (12/14/20 12:03) Ed Iv/Invasive Line Start (12/14/20 12:03) Ns Iv 1000 Ml (Sodium Chloride 0.9%) (12/14/20 12:15) Ondansetron Injection (Zofran Injectio (12/14/20 12:15) Fentanyl Inj (Sublimaze Injection) (12/14/20 12:03) Iohexol Injection (Omnipaque 350 Mg/Ml 1 (12/14/20 12:30) Di Iv Start (Assessment) .IV start (12/14/20 12:17) Received Contrast (Hold Metformin- Contr (12/14/20 12:30) Ns (Ivpb) (Sodium Chloride 0.9% Ivpb Bag (12/14/20 12:30) Piperacillin Sodium/Tazobactam (Zosyn Vi (12/14/20 14:00) Medications Given in ED Current Medications Medications Dose Ordered Sig/Katie Route Start Time Stop Time Status Last Admin Dose Admin Iohexol 100 ml ONCE ONCE IV 12/14/20 12:30 12/14/20 12:31 DC 12/14/20 12:52 100 ML Ondansetron HCl 4 mg ONCE ONCE IVP 12/14/20 12:15 12/14/20 12:16 DC 12/14/20 12:23 4 MG Piperacillin Sod/ Tazobactam Sod 4.5 gm/Sodium Chloride 100 ml @ 200 mls/hr ONCE ONCE IV 12/14/20 14:00 12/14/20 14:29 DC 12/14/20 14:35 200 MLS/HR Sodium Chloride 100 ml ONCE ONCE IV 12/14/20 12:30 12/14/20 12:31 DC 12/14/20 12:52 80 ML Vital Signs/I&O 12/14/20 10:28 Temp 36.2 Pulse 86 Resp 16 B/P (MAP) 159/98 (118) Pulse Ox 96 O2 Delivery Room Air Blood Pressure Mean: 118 Progress Progress Note : Time: 11:05 Progress Note Patient seen and evaluated, while her symptoms do appear related to gallbladder they are also similar to appendix or kidney stone. Will obtain CT of the abdomen and pelvis along with labs. Will give normal saline 1 L per IV, along with Zofran 4 mg for nausea and fentanyl 50 micrograms for pain. 1200 patient reports pain has improved, no further nausea or vomiting. Awaiting CT results. 1230 CT results discussed with the patient and her . Will consult Dr. Quintanilla, they agreeable to this. [address] Quintanilla recommended admission, start Zosyn for antibiotic coverage, will plan cholecystectomy for tomorrow. She can maintain a clear liquid diet until midnight. Admission plans discussed with the patient and her . Questions answered. [address] Giang by phone, Dr. Quintanilla can consult her, if needed. Diagnostic Imaging Diagonstic Imaging: CT Comments NAME: CYNDI ROPER I [facility] REC#: [id number] PT STATUS: REG ER : 1980 PHYSICIAN: MARIJA COOL ADMIT DATE: 12/14/20/ER Draft Date of Exam:12/14/20 CT ABD/PELV W (APPENDICITIS) EXAMINATION: CT abdomen and pelvis with intravenous contrast. TECHNIQUE: Multiple contiguous axial images were obtained through the abdomen and pelvis after the uneventful administration of intravenous contrast. All CT scans use one or more of the following dose optimizing techniques: automated exposure control, MA and/or KvP adjustment based on patient size and exam type or iterative reconstruction. HISTORY: Right lower quadrant pain COMPARISON: None available. FINDINGS: Limited views of the lower thorax are unremarkable. The liver is normal without focal lesion. There is no biliary ductal dilation. There are stones in the gallbladder. There is gallbladder wall thickening. Findings are concerning for acute cholecystitis. Pancreas is normal. Spleen is normal. Adrenal glands are normal. There is a simple cyst in left kidney. No suspicious renal lesions. There is no hydronephrosis. Urinary bladder is normal. There is a fibroid in the uterus. Visualized bowel is normal in caliber without obstruction or inflammation. No free fluid or air. No abdominal or pelvic lymphadenopathy. Aorta is normal in caliber without aneurysm. There are no suspicious osseus lesions. There has been an L5-S1 disc replacement. IMPRESSION: 1. Cholelithiasis and gallbladder wall thickening consistent with acute cholecystitis. Dictated on workstation # [id number] Dict: 12/14/20 1318 Trans: 12/14/20 1322 [facility] [id number] Interpreted by: CLEMENT VARELA MD Electronically signed by: Reviewed: Reviewed by Me Departure Impression Primary Impression: Abdominal pain Qualified Codes: R10.84 - Generalized abdominal pain Additional Impressions: Nausea alone Cholecystitis Disposition: ADMITTED INPATIENT Condition: Stable Admissions Decision to Admit Reason: Admit from ER (General) Decision to Admit/Date: Dec 14, 2020 Time/Decision to Admit Time: 12:30 Departure-Patient Inst. Referrals: SARAH GIANG MD (PCP/Family) Primary Care Physician Copy Copies To 1: SARAH GIANG MD; CIPRIANO QUINTANILLA AMY ARNP Dec 14, 2020 12:11
[2020-12-14] MEDS ORDERED: NS IV 1000 ML 1,000 ML IV SCH (12:15)
[2020-12-14] MEDS ORDERED: ONDANSETRON 4 MG/2 ML (SDV) Z0FRAN IVP ONE (12:15)
[2020-12-14] MEDS ORDERED: HOLD METFORMIN - RECEIVED CONTRAST 20 ML VIAL IV SCH (12:30)
[2020-12-14] MEDS ORDERED: IOHEXOL 350 MG/ML 100 ML (OMNIPAQUE 350) VIAL IV ONE (12:30)
[2020-12-14] MEDS ORDERED: NS 100 ML (IVPB) BAG IV ONE (12:30)
--- NOTE | 2020-12-14 13:22 | Diagnostic Imaging Report ---
EXAMINATION: CT abdomen and pelvis with intravenous contrast. TECHNIQUE: Multiple contiguous axial images were obtained through the abdomen and pelvis after the uneventful administration of intravenous contrast. All CT scans use one or more of the following dose optimizing techniques: automated exposure control, MA and/or KvP adjustment based on patient size and exam type or iterative reconstruction. HISTORY: Right lower quadrant pain COMPARISON: None available. FINDINGS: Limited views of the lower thorax are unremarkable. The liver is normal without focal lesion. There is no biliary ductal dilation. There are stones in the gallbladder. There is gallbladder wall thickening. Findings are concerning for acute cholecystitis. Pancreas is normal. Spleen is normal. Adrenal glands are normal. There is a simple cyst in left kidney. No suspicious renal lesions. There is no hydronephrosis. Urinary bladder is normal. There is a fibroid in the uterus. Visualized bowel is normal in caliber without obstruction or inflammation. No free fluid or air. No abdominal or pelvic lymphadenopathy. Aorta is normal in caliber without aneurysm. There are no suspicious osseus lesions. There has been an L5-S1 disc replacement. IMPRESSION: 1. Cholelithiasis and gallbladder wall thickening consistent with acute cholecystitis. Dictated by: Dictated on workstation # [id number]
[2020-12-14] MEDS ORDERED: PIPERACILLIN SODIUM/TAZOBACTAM 4.5 GM in NS (IVPB) 100 ML IV ONE (14:00)
--- NOTE | 2020-12-14 14:28 | History & Physical-Surgical ---
C[facility]OLL [facility]LE[facility] MED STUDENT 12/14/20 1428: History of Present Illness History of Present Illness Reason for visit/HPI 40 yo female presented to ED for RUQ pain since 0300 this morning with associated nausea. Pt has hx of GERD and hyperglycemia. Pt reports she had nausea and RUQ pain this morning that was not relieved by pepto or tums. She had a similar episode a few weeks ago that was less severe and subsided sooner than this episode. Pt currently has nausea and abdominal pain that she rates a 3/10. Denies vomiting, diarrhea, fever, chills, chest pain or SOA. Pt had CT that arturo wed cholelithiasis and gallbladder wall thickening. Date of Admission Dec 14, 2020 at 14:11 Date Seen by a Provider: Dec 14, 2020 Time Seen by a Provider: 14:15 I consulted on this patient on 12/14/20 14:23 Attending Physician Cipriano Quintanilla DO Admitting Physician Jamila Giang MD Consult Allergies and Home Medications Allergies Coded Allergies: No Known Drug Allergies (Unverified , 04/09/19) Patient Home Medication List Cetirizine HCl (Cetirizine HCl) 10 Mg Tablet, 10 MG PO HS, (Reported) Entered as Reported by: SERGEI BEAR on 12/14/201551 Last Action: Reviewed Diphenhydramine HCl (Benadryl Allergy) 25 Mg Tablet, 25 MG PO HS, (Reported) Entered as Reported by: SERGEI BEAR on 12/14/201551 Last Action: Reviewed Multivitamin (Multivitamin) 1 Each Tablet, 1 EACH PO HS, (Reported) Entered as Reported by: SERGEI BEAR on 12/14/201551 Last Action: Reviewed Omeprazole (Omeprazole) 20 Mg Tab.rap.dr, 20 MG PO HS, (Reported) Entered as Reported by: SERGEI BEAR on 12/14/201551 Last Action: Reviewed Discontinued Medications Cetirizine HCl (Zyrtec) 10 Mg Capsule, 10 MG PO DAILY, (Reported) Discontinued Reason: Duplicate Order Entered as Reported by: LILI KEBEDE on 04/09/19 1139 Last Action: Discontinued Ibuprofen (Ibuprofen) 800 Mg Tablet, 800 MG PO Q6H PRN for PAIN Discontinued Reason: Duplicate Order Prescribed by: EMMANUELLE YBARRA on 04/11/19 1228 Last Action: Discontinued Liraglutide (Victoza 2-Everardo) 0.6 Mg/0.1 Ml Pen.injctr, 1.8 MG SQ DAILY, (Reported) Discontinued Reason: Duplicate Order Entered as Reported by: LILI KEBEDE on 04/09/191138 Last Action: Discontinued Multivitamin (Multivitamins) 1 Each Capsule, 1 EACH PO DAILY, (Reported) Discontinued Reason: Duplicate Order Entered as Reported by: LILI KEBEDE on 04/09/191138 Last Action: Discontinued [place] 3 Polyunsat Fatty Acids (Fish Oil 1,000 mg Capsule) 1,000 Mg Cap, 1,000 MG PO DAILY, (Reported) Discontinued Reason: Duplicate Order Entered as Reported by: LILI KEBEDE on 04/09/191138 Last Action: Discontinued Ranitidine HCl (Acid Pouncing Machine Operator (RANITIDINE)) 150 Mg Tablet, 150 MG PO DAILY, (Reported) Discontinued Reason: Duplicate Order Entered as Reported by: LILI KEBEDE on 04/09/191138 Last Action: Discontinued Past Wwlkfnt-Kgaexy-Clvtmn Hx Patient Social History Tobacco Use?: No Use of E-Cig and/or Vaping dev: No Substance use?: No Alcohol Use?: No Pt feels they are or have been: No Immunizations Up To Date Date of Influenza Vaccine: Dec 09, 2018 First/Initial COVID19 Vaccinat: Nov 2020 Second COVID19 Vaccination Ricky: Nov 2020 Seasonal Allergies Seasonal Allergies: Yes Current Status status: No status: No Communicates: Verbally Primary Language: [place] Citizen Preferred Spoken Language: [place] Citizen Is interpretation needed?: No Past Medical History Surgeries: Section, Orthopedic, Tonsillectomy Sexually Transmitted Disease: No HIV/AIDS: No Gastroesophageal Reflux Arthritis Loss of Vision: Denies Hearing Impairment: Denies Blood Disorders: No Adverse Reaction/Blood Tranf: No (N/A) Family Medical History Reviewed Nursing Family Hx Arthritis G8 BROTHER (GOUT) Chronic lymphoid leukemia Review of Systems Constitutional: No chills, No dizziness, No fever EENTM: No blurred vision, No double vision Respiratory: No cough, No short of breath Cardiovascular: No chest pain, No palpitations Gastrointestinal: RUQ, abdominal pain; No constipation, No diarrhea; nausea; No vomiting Genitourinary: No dysuria, No frequency Musculoskeletal: No back pain, No muscle pain Skin: No change in color, No pruritus Psychiatric/Neurological: No Symptoms Reported Physical Exam Vital Signs Vital Signs - First Documented 12/14/20 10:28 Temp 36.2 Pulse 86 Resp 16 B/P (MAP) 159/98 (118) Pulse Ox 96 O2 Delivery Room Air Capillary Refill : Less Than 3 Seconds Height, Weight, BMI Height: 5'3.00" Weight: 205lbs. 0.0oz. [id number]; 33.00 BMI Method: General Appearance: WD/WN, Mild Distress HEENT: PERRL/EOMI, Normal ENT Inspection Neck: Full Range of Motion, Normal Inspection Respiratory: Chest Non Tender, Lungs Clear, Normal Breath Sounds, No Accessory Muscle Use, No Respiratory Distress Cardiovascular: Regular Rate, Rhythm, No Gallop, No Murmur Gastrointestinal: Normal Bowel Sounds, No Organomegaly, No Pulsatile Mass, Tenderness (RUQ ) Rectal: Deferred Back: Normal Inspection, No CVA Tenderness Extremity: Normal Capillary Refill, Normal Inspection Neurologic/Psychiatric: Alert, Oriented x3, No Motor/Sensory Deficits, Normal Mood/Affect Skin: Normal Color, Warm/Dry Lymphatic: No Adenopathy Data Review Labs Laboratory Tests 12/14/20 10:35: Urine Color YELLOW, Urine Clarity CLEAR, Urine pH 7.0, Urine Specific [place] 1.010L, Urine Protein NEGATIVE, Urine Glucose (UA) TRACEH, Urine Ketones NEGATIVE, Urine Nitrite NEGATIVE, Urine Bilirubin NEGATIVE, Urine Urobilinogen 0.2, Urine Leukocyte Esterase NEGATIVE, Urine RBC (Auto) NEGATIVE, Urine RBC NONE, Urine WBC NONE, Urine Squamous Epithelial Cells 0-2, Urine Crystals NONE, Urine Bacteria NEGATIVE, Urine Casts NONE, Urine Mucus NEGATIVE, Urine Culture Indicated NO 12/14/20 10:44: White Blood Count 10.7, Red Blood Count 5.00, Hemoglobin 15.1, Hematocrit 44, Mean Corpuscular Volume 88, Mean Corpuscular Hemoglobin 30, Mean Corpuscular Hemoglobin Concent 34, Red Cell Distribution Width 11.6, Platelet Count 341, Mean Platelet Volume 9.4, Immature Granulocyte % (Auto) 1, Neutrophils (%) (Auto) 78H, Lymphocytes (%) (Auto) 17, Monocytes (%) (Auto) 4, Eosinophils (%) (Auto) 1, Basophils (%) (Auto) 1, Neutrophils # (Auto) 8.3H, Lymphocytes # (Auto) 1.8, Monocytes # (Auto) 0.4, Eosinophils # (Auto) 0.1, Basophils # (Auto) 0.1, Immature Granulocyte # (Auto) 0.1, Sodium Level 139, Potassium Level 4.1, Chloride Level 105, Carbon Dioxide Level 22, Anion Gap 12, Blood Urea Nitrogen 13, Creatinine 0.77, Estimat Glomerular Filtration Rate 84, BUN/Creatinine Ratio 17, Glucose Level 145H, Calcium Level 9.8, Corrected Calcium 9.4, Total Bilirub in 0.2, Aspartate Amino Transf (AST/SGOT) 25, Alanine Aminotransferase (ALT/SGPT) 37, Alkaline Phosphatase 76, Total Protein 7.5, Albumin 4.5 Assessment/Plan Assessment/Plan Admission Diagonsis Symptomatic acute cholecystitis Reason for Inpatient Admission: Symptomatic acute cholelithiasis Assessment/Plan Symptomatic acute cholelithiasis GERD Symptomatic cholelithiasis CT IMPRESSION: 1. Cholelithiasis and gallbladder wall thickening consistent with acute cholecystitis. -NPO after midnight -Continue IV fluids -Start Zosyn -Cholecystectomy tomorrow. -WBC 10.7, normal -Vitals stable GERD -Continue omeprazole from home CIPRIANO QUINTANILLA DO 12/14/202028: History of Present Illness History of Present Illness Reason for visit/HPI Chief complaint right upper quadrant abdominal pain. Patient is a 40-year-old female who presented emergency department right upper quadrant abdominal pain that began approximately 3:00 this morning. She is having some nausea but no emesis. Patient states that she tried using Pepto-Bismol and Tums which did not have any relief. She reports having an episode similar approximately 2 weeks ago but went away. Patient states that her abdominal pain is in the right upper quadrant. It radiates along to the right side. Its a sharp stabbing type pain. She states that worse it is an 8 out of 10 but currently a 3 out of 10. Patient states pain medication weeks it better. Nothing she does really makes it worse that she knows of. Patient had a CT scan demonstrating gallbladder wall thickening and cholelithiasis consistent with cholecystitis. No other complaints at this time denies any fever sweats chills shortness of breath or chest pain. Allergies and Home Medications Allergies Coded Allergies: No Known Drug Allergies (Unverified , 04/09/19) Patient Home Medication List Home Medication List Reviewed: Yes Cetirizine HCl (Cetirizine HCl) 10 Mg Tablet, 10 MG PO HS, (Reported) Entered as Reported by: SERGEI BEAR on 12/14/201551 Last Action: Reviewed Diphenhydramine HCl (Benadryl Allergy) 25 Mg Tablet, 25 MG PO HS, (Reported) Entered as Reported by: SERGEI BEAR on 12/14/201551 Last Action: Reviewed Multivitamin (Multivitamin) 1 Each Tablet, 1 EACH PO HS, (Reported) Entered as Reported by: SERGEI BEAR on 12/14/201551 Last Action: Reviewed Omeprazole (Omeprazole) 20 Mg Tab.rap.dr, 20 MG PO HS, (Reported) Entered as Reported by: SERGEI BEAR on 12/14/201551 Last Action: Reviewed Discontinued Medications Cetirizine HCl (Zyrtec) 10 Mg Capsule, 10 MG PO DAILY, (Reported) Discontinued Reason: Duplicate Order Entered as Reported by: LILI KEBEDE on 04/09/191138 Last Action: Discontinued Ibuprofen (Ibuprofen) 800 Mg Tablet, 800 MG PO Q6H PRN for PAIN Discontinued Reason: Duplicate Order Prescribed by: EMMANUELLE YBARRA on 04/11/19 1228 Last Action: Discontinued Liraglutide (Victoza 2-Everardo) 0.6 Mg/0.1 Ml Pen.injctr, 1.8 MG SQ DAILY, (Reported) Discontinued Reason: Duplicate Order Entered as Reported by: LILI KEBEDE on 04/09/191138 Last Action: Discontinued Multivitamin (Multivitamins) 1 Each Capsule, 1 EACH PO DAILY, (Reported) Discontinued Reason: Duplicate Order Entered as Reported by: LILI KEBEDE on 04/09/19 113 Last Action: Discontinued [place] 3 Polyunsat Fatty Acids (Fish Oil 1,000 mg Capsule) 1,000 Mg Cap, 1,000 MG PO DAILY, (Reported) Discontinued Reason: Duplicate Order Entered as Reported by: LILI KEBEDE on 04/09/191138 Last Action: Discontinued Ranitidine HCl (Acid Pouncing Machine Operator (RANITIDINE)) 150 Mg Tablet, 150 MG PO DAILY, (Reported) Discontinued Reason: Duplicate Order Entered as Reported by: LILI KEBEDE on 04/09/19 1139 Last Action: Discontinued Past Ztprdgu-Ozdhfz-Jcpzaq Hx Family Medical History Reviewed Nursing Family Hx Arthritis G8 BROTHER (GOUT) Chronic lymphoid leukemia No Pertinent Family Hx Review of Systems Constitutional: No chills, No dizziness, No fever EENTM: No blurred vision, No double vision Respiratory: No cough, No short of breath Cardiovascular: No chest pain, No palpitations Gastrointestinal: RUQ, abdominal pain (RUQ); No constipation, No diarrhea; nausea; No vomiting Genitourinary: No dysuria, No frequency Musculoskeletal: No back pain, No muscle pain Skin: No change in color, No pruritus Psychiatric/Neurological: Denies Anxiety, Denies Depressed, Denies Emotional Problems All Other Systems Reviewed Negative Unless Noted: Yes (Negative excepted noted.) Physical Exam General Appearance: No Apparent Distress, WD/WN HEENT: PERRL/EOMI, Normal ENT Inspection Neck: Normal Inspection, Non Tender, Supple Respiratory: Chest Non Tender, No Accessory Muscle Use, No Respiratory Distress Cardiovascular: Regular Rate, Rhythm, No JVD Gastrointestinal: No Organomegaly; No Distended, No Guarding; Tenderness (RUQ ) Rectal: Deferred Back: Normal Inspection, No CVA Tenderness Extremity: Normal Capillary Refill, Normal Inspection Neurologic/Psychiatric: Alert, Oriented x3, No Motor/Sensory Deficits, Normal Mood/Affect Skin: Normal Color, Warm/Dry Lymphatic: No Adenopathy Assessment/Plan Assessment/Plan Admission Diagonsis Symptomatic acute cholecystitis Right upper quadrant abdominal pain Cholelithiasis. Admission Status: Observation Assessment/Plan Symptomatic acute cholecystitis Right upper quadrant abdominal pain Cholelithiasis Patient on clear liquids right now. On Zosyn. Patient was discussed risk and benefits of having laparoscopic cholecystectomy with intraoperative cholangiogram all indicated procedures performed. She understands and wishes to proceed. Patient be n.p.o. after midnight. Patient to have surgical intervention tomorrow. Patient agrees with plan. Supervisory-Addendum Brief Verification & Attestation Participated in pt care: history, MDM, physical Personally performed: exam, history, MDM, supervision of care Care discussed with: Medical Student Procedures: n/a Results interpretation: Verified all documentation Verification and Attestation of Medical Student E/M Service A medical student performed and documented this service in my presence. I reviewed and verified all information documented by the medical student and made modifications to such information, when appropriate. I personally performed the physical exam and medical decision making. Cipriano Quintanilla, Dec 14, 2020,20:28 [employer] [facility] [employer] STUDENT Dec 14, 2020 14:28 CIPRIANO QUINTANILLA DO Dec 14, 2020 20:29
[2020-12-14 14:45] VITALS: BP 154/90
[2020-12-14 15:15] VITALS: BP 137/80
[2020-12-14] MEDS ORDERED: CATHETER FLUSH 10 ML SYR IV PRN (15:45)
[2020-12-14] MEDS ORDERED: ONDANSETRON 4 MG/2 ML (SDV) Z0FRAN IV PRN (15:45)
[2020-12-14] MEDS: NS IV 1000 ML 1,000 ML IV SCH (15:48)
[2020-12-14] MEDS: fentaNYL INJ 100 MCG/2 ML AMP IV PRN ×3 (15:49→23:37)
[2020-12-14] MEDS ORDERED: MULT-1136 PO (15:52)
[2020-12-14] MEDS ORDERED: CETI10TA17 PO (15:52)
[2020-12-14] MEDS ORDERED: OMEP-401 PO (15:52)
[2020-12-14] MEDS ORDERED: DIPH25TA65 PO (15:52)
[2020-12-14 19:20] VITALS: BP 128/83
[2020-12-14] MEDS: PIPERACILLIN/TAZO 4.5 GM/NS 100 ML IV SCH ×2 (20:59)
[2020-12-15] VITALS (12 sets, daily range): BP systolic 84–133; BP diastolic 48–86
[2020-12-15] MEDS: NS IV 1000 ML 1,000 ML IV SCH ×3 (02:24→13:21)
[2020-12-15] MEDS: fentaNYL INJ 100 MCG/2 ML AMP IV PRN (04:23)
[2020-12-15] MEDS: PIPERACILLIN/TAZO 4.5 GM/NS 100 ML IV SCH ×4 (04:26→13:21)
[2020-12-15 05:58] LABS: BASOPHILS # (AUTO) 0.1 10^3/uL (0.0-0.1); BASOPHILS % (AUTO) 1 % (0-10); EOSINOPHILS # (AUTO) 0.5 10^3/uL (0.0-0.3); EOSINOPHILS % (AUTO) 6 % (0-10); HEMATOCRIT 39 % (35-52); HEMOGLOBIN 12.7 g/dL (11.5-16.0); LYMPHOCYTES # (AUTO) 3.4 10^3/uL (1.0-4.0); LYMPHOCYTES % (AUTO) 41 % (12-44); MEAN CORPUSCULAR HEMOGLOBIN 30 pg (25-34); MEAN CORPUSCULAR HGB CONC 33 g/dL (32-36); MEAN CORPUSCULAR VOLUME 91 fL (80-99); MEAN PLATELET VOLUME 9.1 fL (9.0-12.2); MONOCYTES # (AUTO) 0.6 10^3/uL (0.0-1.0); MONOCYTES % (AUTO) 7 % (0-12); NEUTROPHILS # (AUTO) 3.7 10^3/uL (1.8-7.8); NEUTROPHILS % (AUTO) 45 % (42-75); PLATELET COUNT 269 10^3/uL (130-400); WHITE BLOOD COUNT 8.2 10^3/uL (4.3-11.0)
[2020-12-15 06:19] LABS: CALCIUM 8.6 MG/DL (8.5-10.1); CREATININE SERUM 0.8 MG/DL (0.60-1.30); POTASSIUM 3.6 MMOL/L (3.6-5.0)
--- NOTE | 2020-12-15 07:32 | Progress Note - Surgery ---
STEPHANIEMALOUCARROLL A MED STUDENT 12/15/20 0732: Subjective Date Seen by a Provider: Dec 15, 2020 Time Seen by a Provider: 07:00 Subjective/Events-last exam Pt lying in bed this morning, reports her RUQ pain is a 4/10. Denies N/V/D, chest pain, SOA, fever/chills. Pt reports she has a headache this morning, but no other complaints. Pt reports she is ready for surgery. Review of Systems General: No Chills, No Fatigue HEENT: Head Aches; No Visual Changes Pulmonary: No Dyspnea, No Cough Cardiovascular: No: Chest Pain, Palpitations Gastrointestinal: Abdominal Pain (RUQ); No: Nausea, Vomiting Genitourinary: No Dysuria, No Frequency Musculoskeletal: No: neck pain, leg pain Neurological: No: Weakness, Numbness Objective Exam Vital Signs Date Time Temp Pulse Resp B/P (MAP) Pulse Ox O2 Delivery O2 Flow Rate FiO2 12/15/20 04:16 36.4 65 16 124/77 (93) 96 Room Air 12/15/20 00:10 36.4 54 16 133/86 (102) 96 Room Air 12/14/20 20:00 95 Room Air 12/14/20 19:20 37.2 59 20 128/83 (98) 96 Room Air 12/14/20 15:15 36.4 57 18 137/80 (99) 97 Room Air 12/14/20 14:51 Room Air 12/14/20 14:45 36.3 65 18 154/90 (111) 98 Room Air 12/14/20 14:44 83 16 145/100 97 Room Air 12/14/20 10:28 36.2 86 16 159/98 (118) 96 Room Air I & O 12/15/20 07:00 Intake Total 2060 ml Balance 2060 ml Capillary Refill : Less Than 3 Seconds General Appearance: WD/WN, Mild Distress HEENT: PERRL/EOMI, Normal ENT Inspection Neck: Normal Inspection, Non Tender, Supple Respiratory: Chest Non Tender, Lungs Clear, Normal Breath Sounds, No Accessory Muscle Use, No Respiratory Distress Cardiovascular: Regular Rate, Rhythm, No JVD Gastrointestinal: normal bowel sounds, soft; No distended; tenderness (RUQ); No mass; other (Positive Hunt sign) Extremity: Normal Capillary Refill, Normal Inspection Neurologic/Psychiatric: Alert, Oriented x3, No Motor/Sensory Deficits, Normal Mood/Affect Skin: Normal Color, Warm/Dry Lymphatic: No Adenopathy Results Lab Laboratory Tests 12/14/20 10:35: Urine Color YELLOW, Urine Clarity CLEAR, Urine pH 7.0, Urine Specific [place] 1.010L, Urine Protein NEGATIVE, Urine Glucose (UA) TRACEH, Urine Ketones NEGATIVE, Urine Nitrite NEGATIVE, Urine Bilirubin NEGATIVE, Urine Urobilinogen 0.2, Urine Leukocyte Esterase NEGATIVE, Urine RBC (Auto) NEGATIVE, Urine RBC NONE, Urine WBC NONE, Urine Squamous Epithelial Cells 0-2, Urine Crystals NONE, Urine Bacteria NEGATIVE, Urine Casts NONE, Urine Mucus NEGATIVE, Urine Culture Indicated NO 12/14/20 10:44: White Blood Count 10.7, Red Blood Count 5.00, Hemoglobin 15.1, Hematocrit 44, Mean Corpuscular Volume 88, Mean Corpuscular Hemoglobin 30, Mean Corpuscular Hemoglobin Concent 34, Red Cell Distribution Width 11.6, Platelet Count 341, Mean Platelet Volume 9.4, Immature Granulocyte % (Auto) 1, Neutrophils (%) (Auto) 78H, Lymphocytes (%) (Auto) 17, Monocytes (%) (Auto) 4, Eosinophils (%) (Auto) 1, Basophils (%) (Auto) 1, Neutrophils # (Auto) 8.3H, Lymphocytes # (Auto) 1.8, Monocytes # (Auto) 0.4, Eosinophils # (Auto) 0.1, Basophils # (Auto) 0.1, Immature Granulocyte # (Auto) 0.1, Sodium Level 139, Potassium Level 4.1, Chloride Level 105, Carbon Dioxide Level 22, Anion Gap 12, Blood Urea Nitrogen 13, Creatinine 0.77, Estimat Glomerular Filtration Rate 84, BUN/Creatinine Ratio 17, Glucose Level 145H, Calcium Level 9.8, Corrected Calcium 9.4, Total Bilirubin 0.2, Aspartate Amino Transf (AST/SGOT) 25, Alanine Aminotransferase (ALT/SGPT) 37, Alkaline Phosphatase 76, Total Protein 7.5, Albumin 4.5 12/14/20 18:25: 12/15/20 05:35: White Blood Count 8.2, Red Blood Count 4.27, Hemoglobin 12.7, Hematocrit 39, Mean Corpuscular Volume 91, Mean Corpuscular Hemoglobin 30, Mean Corpuscular Hemoglobin Concent 33, Red Cell Distribution Width 11.9, Platelet Count 269, Mean Platelet Volume 9.1, Immature Granulocyte % (Auto) 0, Neutrophils (%) (Auto) 45, Lymphocytes (%) (Auto) 41, Monocytes (%) (Auto) 7, Eosinophils (%) (Auto) 6, Basophils (%) (Auto) 1, Neutrophils # (Auto) 3.7, Lymphocytes # (Auto) 3.4, Monocytes # (Auto) 0.6, Eosinophils # (Auto) 0.5H, Basophils # (Auto) 0.1, Immature Granulocyte # (Auto) 0.0, Sodium Level 141, Potassium Level 3.6, Chloride Level 109H, Carbon Dioxide Level 21, Anion Gap 11, Blood Urea Nitrogen 8, Creatinine 0.80, Estimat Glomerular Filtration Rate 80, BUN/Creatinine Ratio 10, Glucose Level 84, Calcium Level 8.6 Assessment/Plan Assessment/Plan Admission Diagonsis Symptomatic cholecystitis Assessment/Plan Symptomatic acute cholecystitis Right upper quadrant abdominal pain Cholelithiasis Patient NPO since midnight. On Zosyn. Patient was discussed risk and benefits of having laparoscopic cholecystectomy with intraoperative cholangiogram all indicated procedures performed. She understands and wishes to proceed. Patient to have surgical intervention today. Patient agrees with plan. CIPRIANO MAJOR DO 12/15/20 0827: Subjective Subjective/Events-last exam Still with RUQ abd pain. No new complaints. NPO. Denies n/v fever sweats chills shortness of breath or chest pain. Objective Exam General Appearance: No Apparent Distress, WD/WN HEENT: PERRL/EOMI, Normal ENT Inspection Neck: Normal Inspection, Non Tender Respiratory: Chest Non Tender, No Accessory Muscle Use, No Respiratory Distress Cardiovascular: Regular Rate, Rhythm, No JVD Gastrointestinal: soft, tenderness (RUQ) Extremity: Normal Capillary Refill, Normal Inspection Neurologic/Psychiatric: Alert, Oriented x3 Skin: Normal Color, Warm/Dry Lymphatic: No Adenopathy Assessment/Plan Assessment/Plan Assessment/Plan Symptomatic acute cholecystitis Right upper quadrant abdominal pain Cholelithiasis Patient NPO since midnight. On Zosyn. Patient was discussed risk and benefits of having laparoscopic cholecystectomy with intraoperative cholangiogram all indicated procedures performed. She understands and wishes to proceed. Patient to have surgical intervention today. Patient agrees with plan. Supervisory-Addendum Brief Verification & Attestation Participated in pt care: history, MDM, physical Personally performed: exam, history, MDM, supervision of care Care discussed with: Medical Student Procedures: n/a Results interpretation: Verified all documentation Verification and Attestation of Medical Student E/M Service A medical student performed and documented this service in my presence. I reviewed and verified all information documented by the medical student and made modifications to such information, when appropriate. I personally performed the physical exam and medical decision making. Cipriano Major, Dec 15, 2020,08:27 [employer] MED STUDENT Dec 15, 2020 07:32 CIPRIANO MAJOR DO Dec 15, 2020 08:27
[2020-12-15] MEDS ORDERED: LIDOCAINE/EPI 1%-1:100,000 (XYLOCAINE) 20ML ONE (09:09)
[2020-12-15] MEDS ORDERED: MIDAZOLAM 2 MG/2 ML (VERSED) VIAL ONE (09:19)
[2020-12-15] MEDS ORDERED: fentaNYL INJ 100 MCG/2 ML AMP ONE ×2 (09:19→10:11)
[2020-12-15] MEDS: LACTATED RINGERS 1,000 ML IV PRN ×2 (09:20→09:55)
[2020-12-15] MEDS ORDERED: GLYCOPYRROLATE 0.2 MG/ML (ROBINUL) 2 ML VIAL ONE (10:09)
[2020-12-15] MEDS ORDERED: ONDANSETRON 4 MG/2 ML (SDV) Z0FRAN ONE (10:09)
[2020-12-15] MEDS ORDERED: proPOfol 200 MG/20 ML (DIPRIVAN) VIAL IV ONE (10:09)
[2020-12-15] MEDS ORDERED: ROCURONIUM 10 MG/ML 5 ML SYRINGE IV ONE (10:09)
[2020-12-15] MEDS ORDERED: NEOSTIGMINE 3 MG/3 ML VIAL ONE (10:10)
[2020-12-15] MEDS ORDERED: LIDOCAINE PF 2% 5 ML (XYLOCAINE) VIAL ONE (10:10)
[2020-12-15] MEDS ORDERED: SEVOFLURANE (ULTANE) 15 ML INHAL SOLN ONE (10:10)
--- NOTE | 2020-12-15 10:16 | Progress Note-Post Operative ---
Post-Operative Progess Note Surgeon (s)/State Pilot (s) Surgeon CIPRIANO QUINTANILLA DO State Pilot: Dr. Plaza to assist in retraction dissection and closure. Pre-Operative Diagnosis acute cholecystitis cholelithiasis Post-Operative Diagnosis same Procedure & Operative Findings Date of Procedure 12/15/20 Procedure Performed/Findings PROCEDURE: Laparoscopic cholecystectomy with intraoperative cholangiogram. COMPLICATIONS: None. PROCEDURE: The patient was taken to the operating suite and was prepped and draped in sterile fashion. A surgical pause was performed. Just superior to the umbilicus, a 12 mm incision was made. Dissection was taken down to the fascia, which was then scored and grasped with a Esequiel and the abdomen was then entered. A 0 Vicryl suture was placed in a avybuu-yo-laffu fashion and a Oates trocar was placed and secured. Pneumoperitoneum was achieved. A 5mm trochar place in the subxyphoid and 2 in the right upper quadrant. The gallbladder was then grasped and elevated. Edematous tissues around the gallbladder are present appearing acutely inflamed. The cystic duct, and cystic artery were then dissected out. Clip was placed on the distal portion of the cystic duct which was then partially transected. An arrow catheter was inserted into the duct. The cholangiogram was then performed. No filing defects and contrast made its way into the duodenum. Catheter removed. Clips were placed on proximal portion of the cystic duct and then the duct was then transected. Clips were placed along the proximal and distal portion of the cystic artery which was then transected. Hook cautery was used to dissect the gallbladder from the gallbladder fossa achieving hemostasis. The gallbladder was placed in an Endobag and removed through the 12 mm trocar site. The abdomen was then reinspected. Copious amounts of irrigation were used to irrigate the abdomen and there were no signs of active bleeding. Hemostasis had been achieved. The 12 mm fascial defect was then closed with 0 Vicryl suture that had been placed in a mrhoym-fl-jizst fashion. The abdomen was then desufflated, the trocars were removed. The abdomen was then washed and dried. The skin was then closed using 4-0 Monocryl in a subcuticular fashion. The abdomen was washed and dried and Skin Affix was place over incisions. Patient tolerated the procedure well without any complications and was taken to the recovery room in stable condition. Anesthesia Type general Estimated Blood Loss Estimated blood loss (mL): minimal Specimens/Packing Specimens Removed gallbladder CIPRIANO QUINTANILLA DO Dec 15, 2020 10:16
[2020-12-15] MEDS ORDERED: ACHD5005 PO (10:18)
[2020-12-15] MEDS ORDERED: DOCU-143 PO (10:18)
--- NOTE | 2020-12-15 10:23 | Discharge Inst-Simple/Standard ---
Discharge Inst-Standard Discharge Medications New, Converted or Re-Newed RX: Transmitted to Pharmacy Patient Instructions/Follow Up Plan of Care/Instructions/FU: 2 weeks [place] Activity as Tolerated: No Discharge Diet: Regular Diet Other Inst to Patient Follow up Appt: Make appointment for 2 weeks. Instructions: No lifting greater than 10 pounds. No strenuous activity. May shower in 24 hours, no tub bath or soaking. Use incentive spirometer at home as directed. No Smoking Skin/Wound Care: You have special glue over incision, it will fall off on it's own. Symptoms to Report: Appetite Changes, Extremity Discoloration, Numbness/Tingling, Swelling Increased, Bleeding Excessive, Eyesight Changes, Pain Increased, Urine Color Change, Constipation(Persistent), Fever over 101 degree F, Pain/Pressure in chest, Urinating Difficulty, Cough Up/Vomit Blood, Heart Beat Irreg/Pounding, Pain/Pressure in jaw, Vaginal Bleeding Increase, Cramps in feet or legs, Lightheadedness, Pain/Pressure in shoulder, Diarrhea(Persistent), Memory Changes Suddenly, Questions/Concerns, Weight gain consecutive days, Dizziness/Fainting, Nausea/Vomiting, Shortness of Breath, Weight gain over 2 pounds. If eyes or skin turn yellow notify physician. If questions or concerns contact your physician Or seek help at emergency department. CIPRIANO QUINTANILLA DO Dec 15, 2020 10:23
[2020-12-15] MEDS ORDERED: HYDROcodone/APAP 5 MG/325 MG (LORTAB) TAB PO PRN (10:30)
[2020-12-15] MEDS ORDERED: SUGAMMADEX 500 MG/5 ML VIAL (BRIDION) IV ONE (10:39)
--- NOTE | 2020-12-15 11:26 | Diagnostic Imaging Report ---
INDICATION: Fluoroscopy for intraoperative cholangiogram. FINDINGS: Fluoroscopy was provided in the OR during intraoperative cholangiogram. 7 seconds of fluoroscopic time was utilized. 32 images were obtained demonstrating contrast being injected via the cystic duct remnant. The intrahepatic and extrahepatic bile ducts are normal in caliber. No filling defects are seen to suggest retained stone. Contrast flows into the duodenum. IMPRESSION: Fluoroscopy during intraoperative cholangiogram. Dictated by: Dictated on workstation # [id number]
--- NOTE | 2020-12-16 09:15 | Anesthesia-General Post-Op ---
General Post Op Complications Complications None Follow Up Care/Instructions Patient Instructions None needed. Anesthesia/Patient Condition Patient Condition Pt discharged prior to physical post-op. Chart reviewed. No apparent adverse anesthesia problems noted. SURYA GODDARD CRNA Dec 16, 2020 09:15
== END 2020-12-15 14:20 | disposition home or self-care (01) ==
LOC: EDUNIT# 10:18 → ER 10:20 → 4TH 14:11 → SDC 14:11 → 4TH 14:11 → EDLOC 14:11 → UNDOADMIN 14:11 → UNDODISIN 12-15 14:20 → SDC 12-15 14:20
PROVIDERS: ATTEND Surgery
DX: K80.00 Calculus of gallbladder with acute cholecystitis without obstruction (principal); K21.9 Gastro-esophageal reflux disease without esophagitis; Z20.822 Contact with and (suspected) exposure to COVID-19; Z11.2 Encounter for screening for other bacterial diseases
CPT/HCPCS: 36415; 74177; 76000; 80048; 80053; 81000; 84703; 85025; 87081; 87635

== ENCOUNTER → 2021-12-09 | Outpatient (CLI) | payer OTHER ==
[~2021-12-09] MED LIST changes: +ACHD5005 PO; +CETI10TA17 PO; +DIPH25TA65 PO; +DOCU-143 PO; +MULT-1136 PO; +OMEP-401 PO
[2021-12-09 07:13] LABS: BASOPHILS # (AUTO) 0.1 10^3/uL (0.0-0.1); BASOPHILS % (AUTO) 1 % (0-10); EOSINOPHILS # (AUTO) 0.4 10^3/uL (0.0-0.3); EOSINOPHILS % (AUTO) 5 % (0-10); HEMATOCRIT 43 % (35-52); HEMOGLOBIN 14.6 g/dL (11.5-16.0); LYMPHOCYTES # (AUTO) 3.3 10^3/uL (1.0-4.0); LYMPHOCYTES % (AUTO) 34 % (12-44); MEAN CORPUSCULAR HEMOGLOBIN 30 pg (25-34); MEAN CORPUSCULAR HGB CONC 34 g/dL (32-36); MEAN CORPUSCULAR VOLUME 90 fL (80-99); MEAN PLATELET VOLUME 8.9 fL (9.0-12.2); MONOCYTES # (AUTO) 0.8 10^3/uL (0.0-1.0); MONOCYTES % (AUTO) 8 % (0-12); NEUTROPHILS # (AUTO) 4.9 10^3/uL (1.8-7.8); NEUTROPHILS % (AUTO) 52 % (42-75); PLATELET COUNT 307 10^3/uL (130-400); WHITE BLOOD COUNT 9.5 10^3/uL (4.3-11.0)
[2021-12-09 07:27] LABS: ALBUMIN 4.1 GM/DL (3.2-4.5); POTASSIUM 4.1 MMOL/L (3.6-5.0)
[2021-12-09 07:29] LABS: CALCIUM 9.2 MG/DL (8.5-10.1)
[2021-12-09 07:30] LABS: TOTAL PROTEIN 7.1 GM/DL (6.4-8.2)
[2021-12-09 07:32] LABS: BILIRUBIN,TOTAL 0.5 MG/DL (0.1-1.0)
[2021-12-09 07:33] LABS: CREATININE SERUM 0.8 MG/DL (0.60-1.30)
--- NOTE | 2021-12-09 10:17 | Diagnostic Imaging Report ---
INDICATION: Back pain. Compared with radiographs 06/05/2018. FINDINGS: Interbody material placed at the L5-S1 disc space level with resultant resolution of prior degenerative disc space narrowing. There is some L5-S1 sclerotic facet arthrosis having mildly increased. Lumbar statures are normal and the alignment is anatomic. IMPRESSION: Interval surgical changes with progressive lower lumbar facet arthrosis in normal alignment. No acute appearing pathology. No hardware complication apparent. Dictated by: Dictated on workstation # [id number]
== END ==
LOC: RAD 06:57
PROVIDERS: ATTEND Family Medicine
DX: Z00.01 Encounter for general adult medical examination with abnormal findings (principal); Z12.31 Encounter for screening mammogram for malignant neoplasm of breast; M54.50 Low back pain, unspecified
CPT/HCPCS: 36415; 72100; 80053; 80061; 83036; 84443; 85025

== ENCOUNTER → 2021-12-26 | Outpatient (CLI) | payer OTHER ==
--- NOTE | 2021-12-26 12:12 | Diagnostic Imaging Report ---
Indication: Routine screening. Comparison is made with prior mammogram 01/16/2020 and 01/20/2019. 2-D and 3-D bilateral screening mammography was performed with CAD. CAD is utilized. The current study was also evaluated with a Computer Aided Detection (CAD) system. Scattered fibroglandular densities are identified bilaterally. Benign nodules in the medial left breast appears stable. No spiculated mass or malignant-appearing microcalcifications are seen. Axillae are unremarkable. IMPRESSION: BI-RADS Category 2 No mammographic features suspicious for malignancy are identified. ACR BI-RADS Category 2: Benign findings. Result letter will be mailed to the patient. Note: At least 10% of breast cancer is not imaged by mammography. Dictated by: Dictated on workstation # [id number]
== END ==
LOC: RAD 07:30
PROVIDERS: ATTEND Family Medicine
DX: Z12.31 Encounter for screening mammogram for malignant neoplasm of breast (principal); M54.50 Low back pain, unspecified
CPT/HCPCS: 77063; 77067

== ENCOUNTER → 2021-12-29 | Outpatient (CLI) | payer OTHER ==
--- NOTE | 2021-12-29 13:41 | Diagnostic Imaging Report ---
EXAMINATION: Left wrist MRI without contrast, 12/29/2021. TECHNIQUE: Multiplanar, multisequence [id number] MRI of the left upper extremity was accomplished. INDICATION: Fell several weeks ago. Continued pain. Outside study demonstrated a fracture with the radiographs not available for my direct comparison. FINDINGS: A BB is placed along the ulnar aspect of the wrist anteriorly at the site of greatest pain. Underlying the marker, no acute osseous abnormality is appreciated. Scattered subchondral cystic changes noted throughout the capitate and hamate consistent with degenerative disease. No fractures or dislocations appreciated. Carpal tunnel is unremarkable. Median nerve demonstrates normal signal intensity. The overlying flexor retinaculum appears intact. All visualized tendons are intact. There is degenerative signal along the ulnar aspect of the triangular fibrocartilage, likely degenerative signal. A partial tear is not excluded. No full-thickness tear is appreciated. The intrinsic ligaments are grossly intact on this noncontrast examination. IMPRESSION: 1. No evidence for an acute osseous abnormality with some degenerative findings seen throughout the carpals. 2. Tendons and ligaments intact. 3. Possible degenerative signal within the ulnar attachment of the triangular fibrocartilage with a partial tear not excluded. No discontinuity is appreciated. Dictated by: Dictated on workstation # [id number]
== END ==
LOC: RAD 12:30
PROVIDERS: ATTEND Nurse Practitioner Family
DX: S63.592D Other specified sprain of left wrist, subsequent encounter (principal); W01.0XXD Fall on same level from slipping, tripping and stumbling without subsequent striking against object, subsequent encounter
CPT/HCPCS: 73221

== ENCOUNTER → 2022-01-04 | Outpatient (CLI) | payer OTHER ==
--- NOTE | 2022-01-04 13:44 | Diagnostic Imaging Report ---
INDICATION: Fall pain FINDINGS: 3 view left wrist show no fracture, dislocation or acute articular irregularity. IMPRESSION: No acute appearing abnormality. Dictated by: Dictated on workstation # [id number]
== END ==
LOC: ORTHO 10:59
PROVIDERS: ATTEND Orthopaedic Surgery
DX: M25.532 Pain in left wrist (principal)
CPT/HCPCS: 73110; G0463; 99203